=== PATIENT | female | born 1995 | race Caucasian/White ===

== ENCOUNTER 2020-02-17 14:37 | Outpatient (REF) | payer OTHER, SELFPAY ==
--- NOTE | 2020-02-17 14:50 | XR_ITS ---
EXAMINATION: XR SHOULDER, RIGHT CLINICAL INFORMATION: Pain COMPARISON: None TECHNIQUE: AP external rotation, Grashey, scapular Y, and axillary views of the right shoulder. FINDINGS: No fracture. Glenohumeral and acromioclavicular alignment is anatomic with normal joint space. No abnormal soft tissue calcifications. IMPRESSION: No significant osseous abnormality.
== END 2020-02-17 14:38 | disposition home or self-care (01) ==
LOC: HO.XRAY 14:37
PROVIDERS: PCP Family Medicine; Visit Provider Family Medicine
DX: M25.511 Pain in right shoulder (principal)
CPT/HCPCS: 73030

== ENCOUNTER 2020-03-03 14:06 | Emergency (ER) | payer OTHER, SELFPAY ==
[2020-03-03 14:20] VITALS: BP 114/71; PULSE 91; RESP 16; TEMP 37; O2SAT 98; BMI 26.6
[2020-03-03 15:30] VITALS: BP 112/65; PULSE 74; RESP 16; O2SAT 99
[2020-03-03 16:43] VITALS: BP 136/84; PULSE 85; RESP 18; O2SAT 97
[2020-03-03 16:51] LABS: MANUAL DIFF FLAG NO
[2020-03-03 16:52] LABS: Basophils Percent Auto 0.2 % (0-2); Eosinophils Absolute Auto 0.2 X10*3/uL (0.0-0.4); Eosinophils Percent Auto 1.3 % (0-4); Hematocrit 36.7 % (37-47); Hemoglobin 11.3 g/dl (12.0-16.0); Imm Gran Abs Auto 0.05 X10*3/uL (0.00-0.03); Imm Gran Pct Auto 0.3 % (0.0-0.4); Lymphocytes Percent Auto 6.4 % (20-40); Mean Corpuscular HGB Conc 30.8 g/dl (31.0-35.0); Mean Corpuscular Hemoglobin 24.9 pg (27.0-33.0); Mean Corpuscular Volume 80.8 fL (80-98); Mean Platelet Volume 9.7 fL (9.4-12.3); Monocytes Absolute Auto 0.6 X10*3/uL (0.1-1.2); Monocytes Percent Auto 3.7 % (2-11); Neutrophils Absolute Auto 13.7 X10*3/uL (2.0-8.3); Neutrophils Percent Auto 88.1 % (45-73); Platelet Count 294 X10*3/uL (160-400); Red Blood Count 4.54 X10*6/uL (4.20-5.50); Red Cell Distribution Width 13.3 % (11.0-16.0); White Blood Count 15.6 X10*3/uL (4.8-10.8)
--- NOTE | 2020-03-03 17:14 | CT_ITS ---
EXAMINATION: CT ABDOMEN AND PELVIS WITHOUT CONTRAST CLINICAL INFORMATION: Left-sided abdominal pain with history of Crohn's disease. COMPARISON: 08/11/2019 TECHNIQUE: Multidetector volumetric imaging was performed from the superior aspect of the liver through the pubic symphysis. Sagittal and coronal reformatted images were obtained on the technologist's workstation. This CT examination was performed using dose optimization techniques as appropriate, variously including the following: *Automated exposure control. *Adjustment of mA and/or kV according to patient size (this includes techniques or standardized protocols for targeted exams where dose is matched to indication/reason for exam; i.e. extremities or head). *Use of iterative reconstruction technique. DLP: 488 mGy-cm FINDINGS: LUNG BASES: The visualized lung bases are unremarkable. Again seen is a peripheral bleb in the left lower lobe. LIVER, GALLBLADDER, AND BILIARY TREE: The liver is normal in size, shape, and attenuation. No focal hepatic lesion or biliary ductal dilatation is present. Status post cholecystectomy with clips in the gallbladder fossa. PANCREAS: Unremarkable. SPLEEN: Unremarkable. ADRENAL GLANDS: Unremarkable. KIDNEYS AND URETERS: The kidneys are normal in size, shape, and attenuation. No hydronephrosis, hydroureter, or calculi seen. No perinephric stranding. BLADDER: Unremarkable. GASTROINTESTINAL TRACT: Again seen are postop suture lines in the bowel, presumably status post right hemicolectomy and small bowel resection. There is no evidence of obstruction. The small and large bowel are otherwise unremarkable. ABDOMINAL WALL: No significant hernia is appreciated. LYMPH NODES: No retroperitoneal lymphadenopathy. Multiple small lymph nodes are noted in the root of the mesentery. VASCULAR: Unremarkable. PELVIC VISCERA: An IUD is present in the anteverted uterus. An abnormal adnexal mass or free intraperitoneal fluid is not seen. A new 1.9 cm benign-appearing cyst is noted in the left ovary. OSSEOUS STRUCTURES: Unremarkable. CT/CT abdomen pelvis wo con IMPRESSION: 1. A cause for the patient's left-sided abdominal pain has not been found. 2. Status post cholecystectomy. 3. Status post bowel surgery with no evidence of obstruction. 4. IUD remains in good position in the uterus. 5. A new 1.9 cm benign-appearing left ovarian cyst.
--- NOTE | 2020-03-03 17:15 | ED.ABDPAIN ---
HPI - Abdominal Pain General Chief Complaint: Nausea/Vomiting/Diarrhea Stated Complaint: Nausea, vomiting, diarrhea Time Seen by Provider: 03/03/20 17:05 Source: patient Mode of arrival: ambulatory Limitations: no limitations History of Present Illness HPI narrative: patient with history of Crohn's disease on Stelara last flare-up was in 05/26 and since she is on Stelara for last 18 months, patient has been doing very well. For last 3 days patient noticed diarrhea with blood nausea and vomiting and pain in the left side is getting worse now. Patient denies any fever no abdominal distention Related Data Previous Rx's Medication Instructions Recorded dicyclomine 20 mg PO TID #20 tab 03/03/20 ondansetron 4 mg PO Q6H PRN #20 tab 03/03/20 Allergies Allergy/AdvReac Type Severity Reaction Status Date / Time amoxicillin [AMOXICILLIN] Allergy Intermediate CHRON'S Verified 03/03/20 17:43 FLARE UP, vomiting azathioprine [AZATHIOPRINE] Allergy Unknown PANCREATITI Verified 03/03/20 17:43 S Penicillins [PENICILLINS] AdvReac Unknown NAUSEA, Verified 03/03/20 17:43 CHRONS FLARE UP Review of Systems Review of Systems REVIEW OF SYSTEMS: Pertinent positives and negatives are stated above in the history. GEN: no fevers, chills, fatigue HEENT: no nasal congestion, sore throat, ear pain NEURO: no headache, dizziness, focal weakness PULM: no cough, shortness of breath CV: no chest pain, palpitations, LE edema ABD: per HPI : no dysuria, urgency, frequency SKIN: no rash ROS otherwise negative x 10 Physical Exam Vital Signs: Vital Signs: Vital Signs Temp Pulse Resp BP Pulse Ox 03/03/20 21:12 98.1 F 71 18 112/78 98 03/03/20 19:01 98.6 F 71 18 99/64 97 03/03/20 16:43 85 18 136/84 97 03/03/20 15:30 74 16 112/65 99 03/03/20 14:20 98.6 F 91 16 114/71 98 Body Mass Index 26.6 VITAL SIGNS: Reviewed. GENERAL: Well developed, well nourished, in mild distress. HEAD: Normocephalic/atraumatic, Posterior oropharynx was without edema, erythema or exudate. EYES: PERRLA, EOMI intact without pain, no nystagmus/pallor/icterus noted EARS: Ext canals without abnormality, TMs non-bulging and non-erythematous NOSE: Nares patent bilateral OROPHARYNX: no oral lesions noted, posterior pharynx clear and non-erythematous without noted tonsillar enlargement/erythema/exudates NECK: Supple, no adenopathy LUNGS: Normal breath sounds. No adventitious sounds or accessory muscle use CARDIOVASCULAR: Regular rate and rhythm without noted murmurs, no JVD or lower extremity edema. ABDOMEN: Soft, mild tenderness left upper quadrant, non-distended with normal bowel sounds. No rigidity. No guarding. No palpable masses or hernias noted MUSCULOSKELETAL: No tenderness, deformities, or effusions noted on gross inspection. EXTREMITIES: No cyanosis, clubbing or edema. SKIN: Inspection of the skin reveals no rashes, ulcerations, jaundice, pallor, or petechiae NEUROLOGIC: Alert and oriented x 3. Strength and sensation to light touch were grossly intact x 4. Course Course Course Narrative: patient with diffuse abdominal pain with [facility] is essentially stable with CT scan without any acute findings normal sed rate and CRP unlikely Crohn's disease flare up. Patient feeling much better after symptomatic treatment and IV fluids will discharge her home with likely diagnosis of gastroenteritis advised to follow with product manager e commerce MDM - Abdominal Pain Differential Diagnosis Differential diagnosis: Likely gastroenteritis, gastritis, pancreatitis and small bowel obstruction Differential diagnosis narrative:: flare-up of Crohn disease, adhesions, partial bowel obstruction Lab Data Result diagrams: 03/03/20 16:42 03/03/20 16:42 Labs: Lab Results 03/03/20 03/03/20 03/03/20 Range/Units 16:42 16:42 16:42 WBC 15.6 H (4.8-10.8) X10*3/uL RBC 4.54 (4.20-5.50) X10*6/uL Hgb 11.3 L (12.0-16.0) g/dl Hct 36.7 L (37-47) % MCV 80.8 (80-98) fL MCH 24.9 L (27.0-33.0) pg MCHC 30.8 L (31.0-35.0) g/dl RDW 13.3 (11.0-16.0) % Plt Count 294 (160-400) X10*3/uL MPV 9.7 (9.4-12.3) fL Immature Gran % (Auto) 0.3 (0.0-0.4) % Neut % (Auto) 88.1 H (45-73) % Lymph % (Auto) 6.4 L (20-40) % [place] % (Auto) 3.7 (2-11) % Eos % (Auto) 1.3 (0-4) % Baso % (Auto) 0.2 (0-2) % Lymph # (Auto) 1.0 L (1.2-4.9) X10*3/uL [place] # (Auto) 0.6 (0.1-1.2) X10*3/uL Eos # (Auto) 0.2 (0.0-0.4) X10*3/uL Baso # (Auto) 0.0 (0.0-0.2) X10*3/uL Abs Immat Gran (auto) 0.05 H (0.00-0.03) X10*3/uL Absolute Neuts (auto) 13.7 H (2.0-8.3) X10*3/uL Absolute Nucleated RBC 0.000 (0.0-0.012) X10*3/uL Nucleated RBC % (auto) 0.0 (0.0-0.2) /100WBC ESR 2 (0-20) MM/HR Sodium 136 (135-145) mmol/L Potassium 4.3 (3.3-5.1) mmol/l Chloride 104 (96-108) mmol/L Carbon Dioxide 23 (22-29) mmol/L Anion Gap 13 (12-20) BUN 13 (9-16) mg/dL Creatinine 0.75 (0.5-1.4) mg/dL Estim Creat Clear Calc 109.3 Estimated GFR > 60 Random Glucose 92 (60-115) mg/dL Lactic Acid (0.5-2.0) mmol/L Calcium 8.6 (8.4-10.2) mg/dL Total Bilirubin 0.4 (0.0-1.0) mg/dL Direct Bilirubin 0.2 (0.0-0.5) mg/dL AST 15 (5-31) U/L ALT 9 (0-31) U/L Alkaline Phosphatase 55 (39-117) U/L C-Reactive Protein 0.05 (< or = 0.50) mg/dL Total Protein 6.9 (6.5-8.0) g/dL Albumin 4.3 (3.5-5.0) g/dL Lipase 20 (8-78) U/L Beta HCG, Quant < 2 mIU/mL Urine Color Urine Appearance Urine pH (5.0-8.0) Ur Specific [place] (1.005-1.025) Urine Protein (NEG-TRACE) MG/DL Urine Glucose (UA) (NEG) MG/DL Urine Ketones (NEG) MG/DL Urine Blood (NEG) Urine Nitrite (NEG) Ur Leukocyte Esterase (NEG) Urine RBC (0) /HPF Urine WBC (0-4) /HPF Ur Squamous Epith Cells /LPF Urine Bacteria /LPF 03/03/20 03/03/20 Range/Units 18:22 19:30 WBC (4.8-10.8) X10*3/uL RBC (4.20-5.50) X10*6/uL Hgb (12.0-16.0) g/dl Hct (37-47) % MCV (80-98) fL MCH (27.0-33.0) pg MCHC (31.0-35.0) g/dl RDW (11.0-16.0) % Plt Count (160-400) X10*3/uL MPV (9.4-12.3) fL Immature Gran % (Auto) (0.0-0.4) % Neut % (Auto) (45-73) % Lymph % (Auto) (20-40) % [place] % (Auto) (2-11) % Eos % (Auto) (0-4) % Baso % (Auto) (0-2) % Lymph # (Auto) (1.2-4.9) X10*3/uL [place] # (Auto) (0.1-1.2) X10*3/uL Eos # (Auto) (0.0-0.4) X10*3/uL Baso # (Auto) (0.0-0.2) X10*3/uL Abs Immat Gran (auto) (0.00-0.03) X10*3/uL Absolute Neuts (auto) (2.0-8.3) X10*3/uL Absolute Nucleated RBC (0.0-0.012) X10*3/uL Nucleated RBC % (auto) (0.0-0.2) /100WBC ESR (0-20) MM/HR Sodium (135-145) mmol/L Potassium (3.3-5.1) mmol/l Chloride (96-108) mmol/L Carbon Dioxide (22-29) mmol/L Anion Gap (12-20) BUN (9-16) mg/dL Creatinine (0.5-1.4) mg/dL Estim Creat Clear Calc Estimated GFR Random Glucose (60-115) mg/dL Lactic Acid 0.7 (0.5-2.0) mmol/L Calcium (8.4-10.2) mg/dL Total Bilirubin (0.0-1.0) mg/dL Direct Bilirubin (0.0-0.5) mg/dL AST (5-31) U/L ALT (0-31) U/L Alkaline Phosphatase (39-117) U/L C-Reactive Protein (< or = 0.50) mg/dL Total Protein (6.5-8.0) g/dL Albumin (3.5-5.0) g/dL Lipase (8-78) U/L Beta HCG, Quant mIU/mL Urine Color YELLOW Urine Appearance CLEAR Urine pH 5.5 (5.0-8.0) Ur Specific [place] 1.015 (1.005-1.025) Urine Protein NEG (NEG-TRACE) MG/DL Urine Glucose (UA) NEG (NEG) MG/DL Urine Ketones 15 (NEG) MG/DL Urine Blood 1+ H (NEG) Urine Nitrite NEG (NEG) Ur Leukocyte Esterase NEG (NEG) Urine RBC 0-2 (0) /HPF Urine WBC 0 (0-4) /HPF Ur Squamous Epith Cells TRACE /LPF Urine Bacteria TRACE /LPF Discharge Plan Discharge Clinical Impression: Gastroenteritis Patient Disposition: Home, Self-Care Instructions: Gastroenteritis (ED) Additional Instructions: drink plenty of fluids and continue medications follow-up with primary care doctor / product manager e commerce if not better Prescriptions: New ondansetron 4 mg tablet,disintegrating 4 mg PO Q6H PRN (Reason: nausea and vomiting) Qty: 20 RF: 0 dicyclomine 20 mg tablet 20 mg PO TID Qty: 20 RF: 0 Interventions: ED Discharge Assessment Last Done: 03/03/20 21:50 Discharge Date/Time: 03/03/20 21:50 [facility] Past Medical History Medical History Acute Crohn's disease with intestinal obstruction Bipolar 1 disorder, depressed Eating disorder Pelvic floor dysfunction Social History Social History Alcohol intake: never Smoking Status: Never smoker Use of substances other than those prescribed or required for medical reasons: Yes Substance Use Type: Marijuana Substance Use Frequency: Daily Last Used Substance: Hours (ago) Any prior treatment program specific to substance use: No Advance Directives: No Advance Directives Information Provided: Yes
[2020-03-03 17:34] LABS: Alanine Aminotransferase 9 U/L (0-31); Albumin Level 4.3 g/dL (3.5-5.0); Alkaline Phosphatase 55 U/L (39-117); Anion Gap 13 (12-20); Aspartate Amino Transferase 15 U/L (5-31); Bilirubin Direct 0.2 mg/dL (0.0-0.5); Bilirubin Total 0.4 mg/dL (0.0-1.0); Blood Urea Nitrogen 13 mg/dL (9-16); Calcium 8.6 mg/dL (8.4-10.2); Carbon Dioxide 23 mmol/L (22-29); Chloride 104 mmol/L (96-108); Creatinine Clr Calc Pharmacy 109.3; Estimated Glomerular Filt Rate > 60; Glucose Random 92 mg/dL (60-115); Lipase 20 U/L (8-78); Potassium 4.3 mmol/l (3.3-5.1); Sodium 136 mmol/L (135-145); Total Protein 6.9 g/dL (6.5-8.0)
[2020-03-03] MEDS: ondansetron HCL 4 MG/2 ML VIAL IVPUSH ×2 (17:43→21:43)
[2020-03-03] MEDS: 0.9 % Sodium Chloride 1,000 ML 999 ML IVCONT (17:43)
[2020-03-03] MEDS: Morphine Sulfate 4 MG/ML CARTRIDGE IVPUSH (17:43)
[2020-03-03 18:29] LABS: Color Urine YELLOW; Glucose Urine UA NEG (NEG); Leukocyte Esterase Urine NEG (NEG); Nitrite Urine NEG (NEG); PH 5.5 (5.0-8.0); Specific Gravity - Urine 1.015 (1.005-1.025); Urine Blood 1+ (NEG); Urine Ketones 15 MG/DL (NEG); Urine Protein NEG (NEG-TRACE)
[2020-03-03 18:30] LABS: Appearance Urine CLEAR
[2020-03-03 18:36] LABS: Bacteria Urine TRACE /LPF; RBC Urine 0-2 /HPF (0); Squamous Epithelial Cell Urine TRACE /LPF; WBC Urine 0 /HPF (0-4)
[2020-03-03 19:01] VITALS: BP 99/64; PULSE 71; RESP 18; TEMP 37; O2SAT 97
[2020-03-03 19:24] LABS: C Reactive Protein 0.05 mg/dL (< or = 0.50)
[2020-03-03 19:33] LABS: HCG Quantitative < 2 mIU/mL
[2020-03-03 19:34] LABS: Erythrocyte Sedimentation Rate 2 MM/HR (0-20)
[2020-03-03 20:19] LABS: Lactic Acid 0.7 mmol/L (0.5-2.0)
[2020-03-03 21:12] VITALS: BP 112/78; PULSE 71; RESP 18; TEMP 36.7; O2SAT 98
== END 2020-03-03 21:50 | disposition home or self-care (01) ==
PROVIDERS: Emergency Provider Internal Medicine; PCP Family Medicine
DX: K52.9 Noninfective gastroenteritis and colitis, unspecified (principal); F12.90 Cannabis use, unspecified, uncomplicated; Z79.899 Other long term (current) drug therapy
CPT/HCPCS: 36415; 74176; 80048; 80076; 81001; 83605; 83690; 84702; 85025; 85652; 86140; 96361; 96374; 96375; 96376; 99284; J2270; J2405

== ENCOUNTER 2020-03-08 09:27 | Outpatient (REF) | payer OTHER, SELFPAY ==
[2020-03-09 09:08] LABS: CT PCR NOT DETECTED (Not Detect.); NG PCR NOT DETECTED (Not Detect.)
[2020-03-09 10:28] LABS: BV Int Neg Control Negative (Negative)
[2020-03-09 10:29] LABS: BV Int Pos Control Positive (Positive)
== END 2020-03-08 09:28 | disposition home or self-care (01) ==
LOC: HO.LAB 09:27
PROVIDERS: PCP Family Medicine Geriatric Medicine; Referring Provider Family Medicine Geriatric Medicine; Visit Provider Obstetrics & Gynecology
DX: Z01.419 Encounter for gynecological examination (general) (routine) without abnormal findings (principal); N92.1 Excessive and frequent menstruation with irregular cycle; Z79.899 Other long term (current) drug therapy
CPT/HCPCS: 87480; 87491; 87510; 87591; 87660; 88142

== ENCOUNTER 2020-03-10 14:22 | Outpatient (REF) | payer OTHER, SELFPAY ==
--- NOTE | 2020-03-10 14:27 | US_ITS ---
EXAMINATION: ULTRASOUND PELVIC, COMPLETE CLINICAL INFORMATION: Excessive and frequent menses COMPARISON: None. TECHNIQUE: Transabdominal and transvaginal imaging was performed. Transvaginal imaging was performed for further evaluation of the endometrium and adnexa. FINDINGS: The uterus is of normal size and echogenicity measuring 8.4 x 4.1 x 5.3 cm. A regular homogeneous endometrium is identified measuring 1.2 cm. There is an intrauterine device that appears correctly positioned within the endometrium. Both ovaries are of normal size and echogenicity. The right ovary measures 2.7 x 2.4 x 2.4 cm for a volume of 8.1 mL. The left ovary measures 3.9 x 2.8 x 2.5 cm for a volume of 14.3 mL. There is a 1.7 cm corpus luteum cyst within the left ovary. There is no pelvic free fluid. US/US transvaginal IMPRESSION: Unremarkable pelvic ultrasound. Intrauterine device in correct position.
--- NOTE | 2020-03-10 14:27 | US_ITS ---
EXAMINATION: ULTRASOUND PELVIC, COMPLETE CLINICAL INFORMATION: Excessive and frequent menses COMPARISON: None. TECHNIQUE: Transabdominal and transvaginal imaging was performed. Transvaginal imaging was performed for further evaluation of the endometrium and adnexa. FINDINGS: The uterus is of normal size and echogenicity measuring 8.4 x 4.1 x 5.3 cm. A regular homogeneous endometrium is identified measuring 1.2 cm. There is an intrauterine device that appears correctly positioned within the endometrium. Both ovaries are of normal size and echogenicity. The right ovary measures 2.7 x 2.4 x 2.4 cm for a volume of 8.1 mL. The left ovary measures 3.9 x 2.8 x 2.5 cm for a volume of 14.3 mL. There is a 1.7 cm corpus luteum cyst within the left ovary. There is no pelvic free fluid. US/US pelvic complete IMPRESSION: Unremarkable pelvic ultrasound. Intrauterine device in correct position.
== END 2020-03-10 14:23 | disposition home or self-care (01) ==
LOC: HO.US 14:22
PROVIDERS: Visit Provider Obstetrics & Gynecology
DX: N92.1 Excessive and frequent menstruation with irregular cycle (principal)
CPT/HCPCS: 76830; 76856

== ENCOUNTER → 2020-05-10 15:38 | Outpatient (BNVA) | payer OTHER, SELFPAY | PROVIDERS: PCP Family Medicine; Visit Provider Obstetrics & Gynecology | DX: Z76.89 Persons encountering health services in other specified circumstances (principal) | CPT/HCPCS: 99212 ==

== ENCOUNTER 2020-07-06 10:55 | Outpatient (REF) | payer OTHER, SELFPAY ==
--- NOTE | ~2020-07-06 | MM_ITS ---
EXAMINATION: BONE DENSITOMETRY CLINICAL INDICATION: Crohn's disease, unspecified. Long-term, current, use systemic steroid. Age 24. COMPARISON: None (current study represents initial baseline exam). TECHNIQUE: Using a [employer] DXA System (software version: 13.1) manufactured by [employer], dual-energy x-ray absorptiometry was performed of the lumbar spine and left hip. The images are of good technical quality. Based on ISCD (International Society for Clinical Densitometry) standards of reporting, Z-scores instead of T-scores are reported in this premenopausal woman. Summary results are attached. FINDINGS: AP SPINE L1-L4: BMD 1.245 g/cm2, T-score 0.5, Z-score 0.2, Z-score within expected range for age. LEFT FEMUR, NECK: BMD 0.954 g/cm2, T-score -0.6, Z-score -0.8, Z-score within expected range for age. LEFT FEMUR, TOTAL: BMD 1.027 g/cm2, T-score 0.2, Z-score -0.1, Z-score within expected range for age. IDENTIFIED RISK FACTORS: Low calcium intake, secondary osteoporosis, anticonvulsants, glucocorticoids (chronic). HISTORY OF FRACTURE: None listed. MEDICATIONS: Calcium supplements or multivitamin, vitamin D. MM/XR DEXA axial skeleton IMPRESSION: 1. DIAGNOSIS: Based on the lowest Z-score value of -0.8 in the femoral neck, the patient's bone density is within the expected range for age. 2. 10-YEAR FRACTURE RISK PREDICTION, FRAX: Not performed in this patient outside the age range of 40-90 years. 3. Treatment Recommendations: NOF guidelines recommend consideration for treatment in postmenopausal women and men age 50 and older presenting with the following: -A hip or vertebral (clinical or morphometric) fracture. -T-score less than or equal to -2.5 at the femoral neck or spine after appropriate evaluation to exclude secondary causes. -Low bone mass at the hip or spine and a 10-year fracture probability by FRAX of greater than or equal to 3% for hip fracture or greater than or equal to 20% for major osteoporotic fracture based on the [place] adapted WHO algorithm. 4. Other Recommendations: All treatment decisions require clinical judgment and consideration of individual patient factors, including patient preferences, comorbidities, previous drug use, risk factors not captured in the FRAX model (e.g. frailty, falls, vitamin D deficiency, increased bone turnover, interval significant decline in bone density) and possible under or overestimation of fracture risk by FRAX. FUTURE SCAN RECOMMENDATION: People with diagnosed cases of osteoporosis or at high risk for fracture should have regular bone mineral density tests. For patients eligible for Medicare, routine testing is allowed once every 2 years. The testing frequency can be increased to one year for patients who have rapidly progressing disease, those who are receiving or discontinuing medical therapy to restore bone mass, or have additional risk factors.
== END 2020-07-06 10:56 | disposition home or self-care (01) ==
LOC: HO.MAMMO 10:55
PROVIDERS: PCP Family Medicine; Visit Provider Family Medicine
DX: M81.8 Other osteoporosis without current pathological fracture (principal); K50.919 Crohn's disease, unspecified, with unspecified complications; E58 Dietary calcium deficiency; Z79.52 Long term (current) use of systemic steroids; Z79.899 Other long term (current) drug therapy
CPT/HCPCS: 77080

== ENCOUNTER 2020-07-12 19:01 | Emergency (ER) | payer OTHER, SELFPAY ==
[2020-07-12 20:54] VITALS: BP 115/62; PULSE 79; RESP 18; TEMP 37; O2SAT 100
[2020-07-12 21:42] LABS: Basophils Absolute Auto 0.1 X10*3/uL (0.0-0.2); Basophils Percent Auto 0.4 % (0-2); Eosinophils Percent Auto 0.1 % (0-4); Hemoglobin 10.5 g/dl (12.0-16.0); Imm Gran Abs Auto 0.04 X10*3/uL (0.00-0.03); Imm Gran Pct Auto 0.3 % (0.0-0.4); Lymphocytes Absolute Auto 0.8 X10*3/uL (1.2-4.9); Lymphocytes Percent Auto 6.1 % (20-40); MANUAL DIFF FLAG SCAN; Mean Corpuscular Hemoglobin 22.4 pg (27.0-33.0); Mean Corpuscular Volume 74.6 fL (80-98); Mean Platelet Volume 9.5 fL (9.4-12.3); Monocytes Absolute Auto 0.3 X10*3/uL (0.1-1.2); Monocytes Percent Auto 2.3 % (2-11); Neutrophils Percent Auto 90.8 % (45-73); Platelet Count 396 X10*3/uL (160-400); Red Blood Count 4.69 X10*6/uL (4.20-5.50); Red Cell Distribution Width 13.5 % (11.0-16.0); SCAN SMEAR FLAG 1; White Blood Count 13.2 X10*3/uL (4.8-10.8)
[2020-07-12 22:03] LABS: SLIDE REVIEW VERIFIED
[2020-07-12 22:21] LABS: Albumin Level 4.5 g/dL (3.5-5.0); Alkaline Phosphatase 60 U/L (39-117); Aspartate Amino Transferase 16 U/L (5-31); Bilirubin Direct 0.3 mg/dL (0.0-0.5); Creatinine Clr Calc Pharmacy 115.9; Estimated Glomerular Filt Rate > 60; Sodium 137 mmol/L (135-145); Total Protein 7.6 g/dL (6.5-8.0)
[2020-07-12 23:13] LABS: Alanine Aminotransferase 12 U/L (0-31); Anion Gap 16 (12-20); Bilirubin Total 0.5 mg/dL (0.0-1.0); Blood Urea Nitrogen 13 mg/dL (9-16); Calcium 9.8 mg/dL (8.4-10.2); Carbon Dioxide 21 mmol/L (22-29); Chloride 105 mmol/L (96-108); Glucose Random 97 mg/dL (60-115); Lipase 16 U/L (8-78); Potassium 4.6 mmol/L (3.3-5.1)
--- NOTE | 2020-07-12 23:59 | ED.ABDPAIN ---
HPI - Abdominal Pain General Chief Complaint: Abdominal Pain Stated Complaint: abd pain Time Seen by Provider: 07/12/20 23:52 Source: patient and old records reviewed Mode of arrival: ambulatory Limitations: no limitations History of Present Illness HPI narrative: 24 yo female with Crohn's on Stelara noted LLQ pain today no bloody stools but n/v - feels like a flare, had colonoscopy recently but only told she had duodenum inflammation, took zofran in [place] feels a little better MD elicited complaint: abdominal pain Pertinent past history: other (Crohns) Onset (ago): hour(s) (several ) Pain Consistency: constant Location: LLQ Severity: similar to previous episodes Quality: stabbing Radiation: none Migration to: no migration Exacerbating factors: vomiting and movement Relieving factors: nothing Context: history of similar episodes Associated symptoms: nausea and vomiting Related Data Home Medications Medication Instructions Recorded Confirmed aripiprazole 5 mg tablet 5 mg PO DAILY 03/08/20 05/04/20 omeprazole 20 mg capsule,delayed 20 mg PO DAILY 03/08/20 05/04/20 release oxcarbazepine 600 mg tablet 600 mg PO BID 03/08/20 05/04/20 propranolol 10 mg tablet 10 mg PO BID 03/08/20 05/04/20 trazodone 150 mg tablet 150 mg PO BEDTIME PRN 03/08/20 05/04/20 valacyclovir 1 gram tablet 1,000 mg PO DAILY 03/08/20 05/04/20 ondansetron HCl 4 mg tablet 4 mg PO Q6H PRN 05/10/20 promethazine 12.5 mg tablet 12.5 mg PO Q6H PRN 05/10/20 ustekinumab 90 mg/mL subcutaneous mg SUBCUT 05/10/20 syringe Previous Rx's Medication Instructions Recorded dicyclomine 20 mg PO TID #20 tab 03/03/20 ondansetron 4 mg PO Q6H PRN #20 tab 03/03/20 hydrocodone-acetaminophen 1 tab PO Q6H PRN #12 tab 07/13/20 metronidazole [Flagyl] 500 mg PO BID 7 Days #14 tab 07/13/20 ondansetron 4 mg PO Q8H PRN #20 tab 07/13/20 Allergies Allergy/AdvReac Type Severity Reaction Status Date / Time amoxicillin [AMOXICILLIN] Allergy Intermediate CHRON'S Verified 07/12/20 20:53 FLARE UP, vomiting azathioprine [AZATHIOPRINE] Allergy Unknown PANCREATITI Verified 07/12/20 20:53 S Penicillins [PENICILLINS] AdvReac Unknown NAUSEA, Verified 07/12/20 20:53 CHRONS FLARE UP Review of Systems Review of Systems Constitutional : No Weight loss, No Fever, No Chills ENT/Mouth : No sore throat, No Rhinorrhea Eyes: No Swelling, No Redness Cardiovascular : No Chest Pain, No SOB, NoEdema Respiratory : No Cough, No Sputum, No Wheezing Gastrointestinal : Positive Nausea, Positive Vomiting, no Diarrhea, positive abdominal Pain, No Hematochezia, No Melena Genitourinary : No Dysuria, No Urinary Frequency, No Hematuria, No Urgency Musculoskeletal : No joint pain, No Myalgias, No Joint Swelling Skin : No Skin Lesions, No rash Neuro : No Weakness, No Numbness, No Dizziness, No Headache Psych : No Anxiety/Panic, No Depression Heme/Lymph: No Bruising, No Lymphadenopathy Endocrine : No Polyuria, No Polydipsia All other systems reviewed and are negative. Physical Exam Vital Signs: Vital Signs: Last Vital Signs Temp 98.6 F 07/12/20 20:54 Pulse 79 07/12/20 20:54 Resp 18 07/13/20 00:48 BP 115/62 07/12/20 20:54 Pulse Ox 100 07/12/20 20:54 Body Mass Index 30.0 Appearance: Alert. Oriented X3. No acute distress. Eyes: Pupils equal, round and reactive to light. ENT: Pharynx normal. Neck: Normal inspection. Neck supple. CVS: Normal heart rate and rhythm. Pulses normal. Respiratory: No respiratory distress. Breath sounds normal. Abdomen: Soft and moderate ttp in LLQ no rebound Skin: Skin warm and dry. Normal skin color. Normal skin turgor. Extremities: No lower extremity edema. No calf ttp Neuro: Oriented X 3. No motor deficit. No sensory deficit. Course Course Course Narrative: infl markers negative, no diarrhea feels much better, stable for DC, will avoid imaging and start on flagyl can call her GI doctor today MDM - Abdominal Pain MDM Narrative Medical decision making narrative: 24 yo female with hx of Crohn's and frequent flares is on Stelara at this time c/o n/v and LLQ pain denies bloody stools, will start with labs and infl markers - IVF, IV reglan and IV morphine - CT scan possible depending on clinical improvement as well as labs, dispo per results and findings. Lab Data Result diagrams: 07/12/20 21:32 07/12/20 21:32 Labs: Lab Results 07/12/20 07/12/20 07/13/20 Range/Units 21:32 21:32 00:24 WBC 13.2 H (4.8-10.8) X10*3/uL RBC 4.69 (4.20-5.50) X10*6/uL Hgb 10.5 L (12.0-16.0) g/dl Hct 35.0 L (37-47) % MCV 74.6 L (80-98) fL MCH 22.4 L (27.0-33.0) pg MCHC 30.0 L (31.0-35.0) g/dl RDW 13.5 (11.0-16.0) % Plt Count 396 (160-400) X10*3/uL MPV 9.5 (9.4-12.3) fL Immature Gran % (Auto) 0.3 (0.0-0.4) % Neut % (Auto) 90.8 H (45-73) % Lymph % (Auto) 6.1 L (20-40) % [place] % (Auto) 2.3 (2-11) % Eos % (Auto) 0.1 (0-4) % Baso % (Auto) 0.4 (0-2) % Lymph # (Auto) 0.8 L (1.2-4.9) X10*3/uL [place] # (Auto) 0.3 (0.1-1.2) X10*3/uL Eos # (Auto) 0.0 (0.0-0.4) X10*3/uL Baso # (Auto) 0.1 (0.0-0.2) X10*3/uL Abs Immat Gran (auto) 0.04 H (0.00-0.03) X10*3/uL Absolute Neuts (auto) 12.0 H (2.0-8.3) X10*3/uL Absolute Nucleated RBC 0.000 (0.0-0.012) X10*3/uL Nucleated RBC % (auto) 0.0 (0.0-0.2) /100WBC Smear Tech's Comments VERIFIED ESR 4 (0-20) MM/HR Sodium 137 (135-145) mmol/L Potassium 4.6 (3.3-5.1) mmol/L Chloride 105 (96-108) mmol/L Carbon Dioxide 21 L (22-29) mmol/L Anion Gap 16 (12-20) BUN 13 (9-16) mg/dL Creatinine 0.75 (0.5-1.4) mg/dL Estim Creat Clear Calc 115.9 Estimated GFR > 60 Random Glucose 97 (60-115) mg/dL Lactic Acid (0.5-2.0) mmol/L Calcium 9.8 D (8.4-10.2) mg/dL Total Bilirubin 0.5 (0.0-1.0) mg/dL Direct Bilirubin 0.3 (0.0-0.5) mg/dL AST 16 (5-31) U/L ALT 12 (0-31) U/L Alkaline Phosphatase 60 (39-117) U/L C-Reactive Protein (< or = 0.50) mg/dL Total Protein 7.6 (6.5-8.0) g/dL Albumin 4.5 (3.5-5.0) g/dL Lipase 16 (8-78) U/L Urine Color Urine Appearance Urine pH (5.0-8.0) Ur Specific [place] (1.005-1.025) Urine Protein (NEG-TRACE) MG/DL Urine Glucose (UA) (NEG) MG/DL Urine Ketones (NEG) MG/DL Urine Blood (NEG) Urine Nitrite (NEG) Ur Leukocyte Esterase (NEG) Urine Test (NEGATIVE) COVID-19 (DIO) (Negative) COVID-19 Clin Com 07/13/20 07/13/20 07/13/20 Range/Units 00:24 00:24 00:24 WBC (4.8-10.8) X10*3/uL RBC (4.20-5.50) X10*6/uL Hgb (12.0-16.0) g/dl Hct (37-47) % MCV (80-98) fL MCH (27.0-33.0) pg MCHC (31.0-35.0) g/dl RDW (11.0-16.0) % Plt Count (160-400) X10*3/uL MPV (9.4-12.3) fL Immature Gran % (Auto) (0.0-0.4) % Neut % (Auto) (45-73) % Lymph % (Auto) (20-40) % [place] % (Auto) (2-11) % Eos % (Auto) (0-4) % Baso % (Auto) (0-2) % Lymph # (Auto) (1.2-4.9) X10*3/uL [place] # (Auto) (0.1-1.2) X10*3/uL Eos # (Auto) (0.0-0.4) X10*3/uL Baso # (Auto) (0.0-0.2) X10*3/uL Abs Immat Gran (auto) (0.00-0.03) X10*3/uL Absolute Neuts (auto) (2.0-8.3) X10*3/uL Absolute Nucleated RBC (0.0-0.012) X10*3/uL Nucleated RBC % (auto) (0.0-0.2) /100WBC Smear Tech's Comments ESR (0-20) MM/HR Sodium (135-145) mmol/L Potassium (3.3-5.1) mmol/L Chloride (96-108) mmol/L Carbon Dioxide (22-29) mmol/L Anion Gap (12-20) BUN (9-16) mg/dL Creatinine (0.5-1.4) mg/dL Estim Creat Clear Calc Estimated GFR Random Glucose (60-115) mg/dL Lactic Acid 1.1 (0.5-2.0) mmol/L Calcium (8.4-10.2) mg/dL Total Bilirubin (0.0-1.0) mg/dL Direct Bilirubin (0.0-0.5) mg/dL AST (5-31) U/L ALT (0-31) U/L Alkaline Phosphatase (39-117) U/L C-Reactive Protein 0.05 (< or = 0.50) mg/dL Total Protein (6.5-8.0) g/dL Albumin (3.5-5.0) g/dL Lipase (8-78) U/L Urine Color Urine Appearance Urine pH (5.0-8.0) Ur Specific [place] (1.005-1.025) Urine Protein (NEG-TRACE) MG/DL Urine Glucose (UA) (NEG) MG/DL Urine Ketones (NEG) MG/DL Urine Blood (NEG) Urine Nitrite (NEG) Ur Leukocyte Esterase (NEG) Urine Test (NEGATIVE) COVID-19 (DIO) Negative (Negative) COVID-19 Clin Com See Note 07/13/20 07/13/20 Range/Units 00:24 00:24 WBC (4.8-10.8) X10*3/uL RBC (4.20-5.50) X10*6/uL Hgb (12.0-16.0) g/dl Hct (37-47) % MCV (80-98) fL MCH (27.0-33.0) pg MCHC (31.0-35.0) g/dl RDW (11.0-16.0) % Plt Count (160-400) X10*3/uL MPV (9.4-12.3) fL Immature Gran % (Auto) (0.0-0.4) % Neut % (Auto) (45-73) % Lymph % (Auto) (20-40) % [place] % (Auto) (2-11) % Eos % (Auto) (0-4) % Baso % (Auto) (0-2) % Lymph # (Auto) (1.2-4.9) X10*3/uL [place] # (Auto) (0.1-1.2) X10*3/uL Eos # (Auto) (0.0-0.4) X10*3/uL Baso # (Auto) (0.0-0.2) X10*3/uL Abs Immat Gran (auto) (0.00-0.03) X10*3/uL Absolute Neuts (auto) (2.0-8.3) X10*3/uL Absolute Nucleated RBC (0.0-0.012) X10*3/uL Nucleated RBC % (auto) (0.0-0.2) /100WBC Smear Tech's Comments ESR (0-20) MM/HR Sodium (135-145) mmol/L Potassium (3.3-5.1) mmol/L Chloride (96-108) mmol/L Carbon Dioxide (22-29) mmol/L Anion Gap (12-20) BUN (9-16) mg/dL Creatinine (0.5-1.4) mg/dL Estim Creat Clear Calc Estimated GFR Random Glucose (60-115) mg/dL Lactic Acid (0.5-2.0) mmol/L Calcium (8.4-10.2) mg/dL Total Bilirubin (0.0-1.0) mg/dL Direct Bilirubin (0.0-0.5) mg/dL AST (5-31) U/L ALT (0-31) U/L Alkaline Phosphatase (39-117) U/L C-Reactive Protein (< or = 0.50) mg/dL Total Protein (6.5-8.0) g/dL Albumin (3.5-5.0) g/dL Lipase (8-78) U/L Urine Color YELLOW Urine Appearance CLEAR Urine pH 6.0 (5.0-8.0) Ur Specific [place] >= 1.030 H (1.005-1.025) Urine Protein TRACE (NEG-TRACE) MG/DL Urine Glucose (UA) NEG (NEG) MG/DL Urine Ketones >=80 (NEG) MG/DL Urine Blood NEG (NEG) Urine Nitrite NEG (NEG) Ur Leukocyte Esterase NEG (NEG) Urine Test NEGATIVE (NEGATIVE) COVID-19 (DIO) (Negative) COVID-19 Clin Com Discharge Plan Discharge Clinical Impression: Abdominal pain Qualifiers: Abdominal location: left lower quadrant Qualified Code(s): R10.32 - Left lower quadrant pain Vomiting Qualifiers: Vomiting type: unspecified Vomiting Intractability: non-intractable Nausea presence: with nausea Qualified Code(s): R11.2 - Nausea with vomiting, unspecified Patient Disposition: Home, Self-Care Instructions: Acute Nausea and Vomiting (ED), Abdominal Pain (ED) Additional Instructions: return to ED for any worsening symptoms or concerns please call your GI doctor today Prescriptions: New hydrocodone-acetaminophen 5-325 mg tablet 1 tab PO Q6H PRN (Reason: pain) Qty: 12 RF: 0 ondansetron 4 mg tablet,disintegrating 4 mg PO Q8H PRN (Reason: nausea and vomiting) Qty: 20 RF: 0 metronidazole [Flagyl] 500 mg tablet 500 mg PO BID 7 Days Qty: 14 RF: 0 No Action ondansetron 4 mg tablet,disintegrating 4 mg PO Q6H PRN (Reason: nausea and vomiting) Qty: 20 RF: 0 dicyclomine 20 mg tablet 20 mg PO TID Qty: 20 RF: 0 aripiprazole [Abilify] 5 mg tablet 5 mg PO DAILY RF: 0 oxcarbazepine 600 mg tablet 600 mg PO BID RF: 0 trazodone 150 mg tablet 150 mg PO BEDTIME PRN (Reason: Insomnia) RF: 0 omeprazole 20 mg capsule,delayed release(DR/EC) 20 mg PO DAILY RF: 0 propranolol 10 mg tablet 10 mg PO BID RF: 0 valacyclovir 1 gram tablet 1,000 mg PO DAILY RF: 0 ondansetron HCl 4 mg tablet 4 mg PO Q6H PRN (Reason: nausea) RF: 0 promethazine 12.5 mg tablet 12.5 mg PO Q6H PRN (Reason: nausea) RF: 0 Stelara 90 mg/mL syringe subcut RF: 0 PMFSH Past Medical History Medical History Acute Crohn's disease with intestinal obstruction Bipolar 1 disorder, depressed Eating disorder Pelvic floor dysfunction Surgical History History of appendectomy History of bowel resection History of cholecystectomy Family History Family History Maternal Grandmother Brain cancer Paternal Grandmother Lung cancer Father Skin cancer Diabetes Heart disease Asthma Maternal Grandfather Diabetes Maternal Grandmother Diabetes Paternal Grandfather Diabetes Paternal Grandmother Diabetes Mother Heart disease Social History Social History Alcohol intake: never Smoking Status: Never smoker Substance Use Type: Marijuana Advance Directives: No Sexual orientation: Straight/Heterosexual Gender identity: female
[2020-07-13] MEDS: Metoclopramide HCl 10 MG/2 ML VIAL 5 MG IVPUSH (00:47)
[2020-07-13 00:48] VITALS: RESP 18
[2020-07-13] MEDS: diphenhydrAMINE HCL 50 MG/ML VIAL 25 MG IVPUSH (00:48)
[2020-07-13] MEDS: 0.9 % Sodium Chloride 1,000 ML 999 ML IVCONT ×2 (00:48→01:22)
[2020-07-13] MEDS: Morphine Sulfate 4 MG/ML CARTRIDGE IVPUSH (00:48)
[2020-07-13 00:52] LABS: Lactic Acid 1.1 mmol/L (0.5-2.0)
[2020-07-13 00:53] LABS: Glucose Urine UA NEG (NEG); Leukocyte Esterase Urine NEG (NEG); Nitrite Urine NEG (NEG); Specific Gravity - Urine >= 1.030 (1.005-1.025); Urine Blood NEG (NEG); Urine Ketones >=80 MG/DL (NEG); Urine Protein TRACE MG/DL (NEG-TRACE)
[2020-07-13 00:54] LABS: C Reactive Protein 0.05 mg/dL (< or = 0.50)
[2020-07-13 00:55] LABS: Appearance Urine CLEAR; Color Urine YELLOW
[2020-07-13 00:57] LABS: UPreg QC Valid YES; Urine Pregnancy NEGATIVE (NEGATIVE)
[2020-07-13 01:05] LABS: COVID-19 Test Negative (Negative); IDNOW Serial# 9DD0AD1C
[2020-07-13 01:13] LABS: Erythrocyte Sedimentation Rate 4 MM/HR (0-20)
[2020-07-13 03:07] VITALS: BP 111/65; PULSE 76; RESP 16; TEMP 36.6; O2SAT 99
== END 2020-07-13 03:55 | disposition home or self-care (01) ==
PROVIDERS: Emergency Provider Emergency Medicine; PCP Family Medicine
DX: R10.32 Left lower quadrant pain (principal); R11.2 Nausea with vomiting, unspecified; F12.90 Cannabis use, unspecified, uncomplicated; Z20.822 Contact with and (suspected) exposure to COVID-19; Z79.899 Other long term (current) drug therapy
CPT/HCPCS: 36415; 80048; 80076; 81003; 81025; 83605; 83690; 85025; 85652; 86140; 87040; 87635; 96365; 96366; 96375; 99283; 99284; J1200; J2270; J2765

== ENCOUNTER 2020-07-30 10:39 | Outpatient (REF) | payer OTHER, SELFPAY | END 2020-07-30 10:40 | disposition home or self-care (01) | LOC: HO.MDS 10:39 | PROVIDERS: Visit Provider Internal Medicine | DX: D50.9 Iron deficiency anemia, unspecified (principal) | CPT/HCPCS: 96365; J2916 ==

== ENCOUNTER 2020-08-05 11:49 | Outpatient (REF) | payer MEDICARE, MEDICAID, SELFPAY | END 2020-08-05 11:50 | disposition home or self-care (01) | LOC: HO.MDS 11:49 | PROVIDERS: PCP Family Medicine; Visit Provider Internal Medicine | DX: D50.9 Iron deficiency anemia, unspecified (principal) | CPT/HCPCS: 96365; J2916 ==

== ENCOUNTER → 2020-08-10 10:53 | Outpatient (BNVA) | payer MEDICARE, MEDICAID, SELFPAY | PROVIDERS: PCP Family Medicine; Visit Provider Obstetrics & Gynecology | DX: Z30.432 Encounter for removal of intrauterine contraceptive device (principal) | CPT/HCPCS: 58301 ==

== ENCOUNTER 2020-11-25 06:23 | Outpatient (REF) | payer MEDICARE, MEDICAID, SELFPAY ==
[2020-11-26 12:11] LABS: Lyme Abs Screen <0.90 index
== END 2020-11-25 06:24 | disposition home or self-care (01) ==
LOC: HO.HMGCLDS 06:23
PROVIDERS: PCP Family Medicine; Visit Provider Family Medicine
DX: T14.8XXA Other injury of unspecified body region, initial encounter (principal); W57.XXXA Bitten or stung by nonvenomous insect and other nonvenomous arthropods, initial encounter; R50.9 Fever, unspecified
CPT/HCPCS: 36415; 86617; 86618

== ENCOUNTER 2021-03-01 10:38 | Outpatient (REF) | payer MEDICARE, MEDICAID, SELFPAY ==
[2021-03-01 11:24] LABS: MANUAL DIFF FLAG NO
[2021-03-01 11:31] LABS: Basophils Percent Auto 0.5 % (0-2); Eosinophils Absolute Auto 0.1 X10*3/uL (0.0-0.4); Eosinophils Percent Auto 1.6 % (0-4); Hematocrit 41.3 % (37-47); Hemoglobin 13.3 g/dl (12.0-16.0); Imm Gran Abs Auto 0.02 X10*3/uL (0.00-0.03); Imm Gran Pct Auto 0.3 % (0.0-0.4); Lymphocytes Absolute Auto 1.6 X10*3/uL (1.2-4.9); Lymphocytes Percent Auto 25.6 % (20-40); Mean Corpuscular HGB Conc 32.2 g/dl (31.0-35.0); Mean Corpuscular Hemoglobin 26.8 pg (27.0-33.0); Mean Corpuscular Volume 83.1 fL (80-98); Mean Platelet Volume 10.5 fL (9.4-12.3); Monocytes Absolute Auto 0.4 X10*3/uL (0.1-1.2); Monocytes Percent Auto 6.8 % (2-11); Neutrophils Absolute Auto 4.1 X10*3/uL (2.0-8.3); Neutrophils Percent Auto 65.2 % (45-73); Platelet Count 330 X10*3/uL (160-400); Red Blood Count 4.97 X10*6/uL (4.20-5.50); Red Cell Distribution Width 13.6 % (11.0-16.0); White Blood Count 6.3 X10*3/uL (4.8-10.8)
[2021-03-01 12:13] LABS: Monotest Negative (Negative)
== END 2021-03-01 10:39 | disposition home or self-care (01) ==
LOC: HO.HMGCLDS 10:38
PROVIDERS: PCP Family Medicine; Visit Provider Family Medicine
DX: R50.9 Fever, unspecified (principal); R53.83 Other fatigue; Z20.828 Contact with and (suspected) exposure to other viral communicable diseases
CPT/HCPCS: 36415; 85025; 86308

== ENCOUNTER 2021-05-12 18:57 | Emergency (ER) | payer MEDICARE, MEDICAID, SELFPAY ==
[2021-05-12 19:18] VITALS: BP 169/61; PULSE 74; RESP 18; TEMP 36.6; O2SAT 74; BMI 33.0
[2021-05-12 20:30] VITALS: BP 122/71; PULSE 86; RESP 16; TEMP 36.8
[2021-05-12 20:49] LABS: Appearance Urine CLEAR; Color Urine YELLOW; Glucose Urine UA NEG (NEG); Leukocyte Esterase Urine NEG (NEG); Nitrite Urine NEG (NEG); Urine Blood NEG (NEG); Urine Ketones NEG (NEG); Urine Protein NEG (NEG-TRACE)
--- NOTE | 2021-05-12 20:55 | ED_ITS ---
HPI - Abdominal Pain General Chief Complaint: Abdominal Pain Stated Complaint: Abdominal pain/16 Weeks preg Time Seen by Provider: 05/12/21 20:33 Source: patient Mode of arrival: ambulatory Limitations: no limitations History of Present Illness HPI narrative: 20-year-old female LMP 01/19/2021, YOLANDA 10/26/2021, 16 weeks history of Crohn's disease with small bowel obstructions who presents emergency department for evaluation of nausea, vomiting, diarrhea and headache. Patient states that she has had a headache for approximately 1 week. She describes it as an intermittent pressure-like sensation located throughout her entire head. The pain comes on and off in usually goes away at night and has p ersistent throughout the day. The pain is 6/10 at its worst. Patient states that since this morning she developed persistent nausea. She had 1 episode emesis while she was waiting in the emergency department . She describes the emesis as a large volume with no blood. She states that she has had for soft stools throughout the day with no blood in the stool. She is complaining abdominal pain. She points to her upper abdomen and left lower quadrant when asked to localize the pain. The pain is an intermittent cramping sensation. She states that she has had similar presentations when she has had a flare-up of her Crohn's disease and she has had small bowel obstructions. She states that she has had chills but no fever. She denies cough. She does feel short of breath. She is having myalgias. The patient is on the biologic, Stelara which she gets every 8 months and she states she has in her middle of her dose. 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 Related Data Home Medications Medication Instructions Recorded Confirmed omeprazole 20 mg capsule,delayed 20 mg PO DAILY 03/08/20 11/04/20 release propranolol 10 mg tablet 10 mg PO BID 03/08/20 11/04/20 valacyclovir 1 gram tablet 1,000 mg PO DAILY 03/08/20 11/04/20 ondansetron HCl 4 mg tablet 4 mg PO Q6H PRN 05/10/20 11/04/20 promethazine 12.5 mg tablet 12.5 mg PO Q6H PRN 05/10/20 11/04/20 ustekinumab 90 mg/mL subcutaneous 90 mg SUBCUT DIRECTED 05/10/20 11/04/20 syringe Previous Rx's Medication Instructions Recorded dicyclomine 20 mg tablet 20 mg PO TID #20 tab 03/03/20 ondansetron 4 mg disintegrating 4 mg PO Q6H PRN #20 tab 03/03/20 tablet metoclopramide HCl 10 mg tablet 10 mg PO Q6H PRN #20 tab 05/12/21 (Reglan) Allergies Allergy/AdvReac Type Severity Reaction Status Date / Time amoxicillin [AMOXICILLIN] Allergy Intermediate CHRON'S Verified 05/12/21 19:18 FLARE UP, vomiting azathioprine [AZATHIOPRINE] Allergy Unknown PANCREATITI Verified 05/12/21 19:18 S Penicillins [PENICILLINS] AdvReac Unknown NAUSEA, Verified 05/12/21 19:18 CHRONS FLARE UP Review of Systems Review of Systems Yes all other systems are reviewed and are negative Physical Exam Vital Signs: Vital Signs: Last Vital Signs Temp 98.2 F 05/12/21 20:30 Pulse 86 05/12/21 20:30 Resp 16 05/12/21 20:30 BP 122/71 05/12/21 20:30 Pulse Ox 74 L 05/12/21 19:18 BMI result Body Mass Index 33.0 Const: General: cooperative and no acute distress Orientation/consci ousness: oriented to person and oriented to place Limitations: no limitations HENMT: Head: Yes normal to inspection, Yes normocephalic and Yes atraumatic Ears: external ears normal General nose exam: Normal external nose present Face and sinus: Yes normal facial exam Mouth: Normal oral and palatal mucosa present Throat: Yes posterior oropharynx normal Eyes: General: appearance normal, both eyes and all related structures Pupils: Equal, round and reactive pupils present Neck: Neck: Yes normal visual inspection, Yes no lymphadenopathy, Yes trachea midline and Yes supple Chest: Chest palpation & inspection: normal inspection of the chest and normal palpation of entire chest wall Resp: Effort & Inspection: normal respiratory effort and able to speak in complete sentences Auscultation: clear to auscultation bilaterally Cardio: Rate: regular rate Rhythm: regular rhythm Heart sounds: S1 n ormal heart sound present, S2 normal heart sound present and no murmurs GI: Inspection: Yes normal to inspection Palpation (GI): Soft to palpation, Tenderness to palpation present (GI) in the epigastrum (Mild), in the LLQ (Mild) and in the LUQ (Mild) and no guarding Auscultation: normal bowel sounds : General: Yes no CVA tenderness Back/Spine/Pelvis: Back: no CVA tenderness Skin: General skin exam: no rashes or lesions noted Neuro: General: oriented to person and oriented to place Cranial nerves: Yes CN's II-XII intact bilaterally and Yes Equal, round and reactive pupils present Cognition (Neuro): normal cognition Motor exam (neuro): 5/5 motor strength present throughout Extrem: General: Yes normal to inspection Psych: Appearance: grossly normal Speech and movement: Normal speech and movement present Affect: normal affect Attitude: cooperative Thought process: Normal thought process present Thought content: Normal thought content present Course Course Course Narrative: 25-year-old female, , 16 weeks who presents emergency department for evaluation of nausea, vomiting, diarrhea, headache and abdominal pain. Patient does have a history of Crohn's and has had similar presentations in the past flare-up of her Crohn's disease. She has also had small bowel partial small bowel obstructions in the past. The patient is on a biologic for Crohn's disease. She had 2 Pfizer COVID-19 vaccines. Vital signs initially revealed a blood pressure of 169/61 with repeat of 122/71, the patient's pulse, respiratory rate and temperature were normal. O2 saturation and believe was also recorded 74% on room air. Physical examination did reveal midepigastric and left-sided abdominal tenderness otherwise was unremarkable. I ordered a laboratory evaluation and a COVID-19 swab. Patient will be treated with Reglan 10 mg IV and Benadryl 50 mg IV for her headache and for nausea and vomiting. I also ordered normal saline x1 L. 2238: The patient is feeling significantly better after the above treatment. Laboratory evaluation [place] [id number] which may be related to her otherwise are no other significant findings. COVID-19 test was negative. Urinalysis was negative. At this time I do not think that her symptoms are due to a Crohn's flare-up but I told her to contact her GI specialist tomorrow to discuss her symptoms to see if they want a started a course of steroids. Patient will be discharged home with a prescription for Reglan. MDM - Abdominal Pain Lab Data Result diagrams: 05/12/21 21:13 05/12/21 21:13 Labs: Lab Results 05/12/21 05/12/21 05/12/21 Range/Units 20:28 20:28 21:13 WBC 15.6 H (4.8-10.8) X10*3/uL RBC 4.39 (4.20-5.50) X10*6/uL Hgb 12.8 (12.0-16.0) g/dl Hct 38.2 (37.0-47.0) % MCV 87.0 (80.0-98.0) fL MCH 29.2 (27.0-33.0) pg MCHC 33.5 (31.0-35.0) g/dl RDW 13.8 (11.0-16.0) % Plt Count 249 (160-400) X10*3/uL MPV 9.5 (9.4-12.3) fL Immature Gran % (Auto) 0.5 H (0.0-0.4) % Neut % (Auto) 88.9 H (45-73) % Lymph % (Auto) 7.1 L (20-40) % [place] % (Auto) 3.1 (2-11) % Eos % (Auto) 0.2 (0-4) % Baso % (Auto) 0.2 (0-2) % Lymph # (Auto) 1.1 L (1.2-4.9) X10*3/uL [place] # (Auto) 0.5 (0.1-1.2) X10*3/uL Eos # (Auto) 0.0 (0.0-0.4) X10*3/uL Baso # (Auto) 0.0 (0.0-0.2) X10*3/uL Abs Immat Gran (auto) 0.08 H (0.00-0.03) X10*3/uL Absolute Neuts (auto) 13.8 H (2.0-8.3) x10*3/uL Absolute Nucleated RBC 0.000 (0.0-0.012) X10*3/uL Nucleated RBC % (auto) 0.0 (0.0-0.2) /100WBC Sodium (135-145) mmol/L Potassium (3.3-5.1) mmol/L Chloride (96-108) mmol/L Carbon Dioxide (22-29) mmol/L Anion Gap (12-20) BUN (9-16) mg/dL Creatinine (0.5-1.4) mg/dL Estim Creat Clear Calc Estimated GFR Random Glucose (60-115) mg/dL Calcium (8.4-10.2) mg/dL Total Bilirubin (0.0-1.0) mg/dL AST (5-31) U/L ALT (0-31) U/L Alkaline Phosphatase (39-117) U/L Total Protein (6.5-8.0) g/dL Albumin (3.5-5.0) g/dL Lipase (8-78) U/L Urine Color YELLOW Urine Appearance CLEAR Urine pH 7.0 (5.0-8.0) Ur Specific [place] 1.010 (1.005-1.025) Urine Protein NEG (NEG-TRACE) MG/DL Urine Glucose (UA) NEG (NEG) MG/DL Urine Ketones NEG (NEG) MG/DL Urine Blood NEG (NEG) Urine Nitrite NEG (NEG) Ur Leukocyte Esterase NEG (NEG) Urine Test POSITIVE H (NEGATIVE) COVID-19 (DIO) (Negative) COVID-19 Clin Com 05/12/21 05/12/21 05/12/21 Range/Units 21:13 21:13 21:13 WBC (4.8-10.8) X10*3/uL RBC (4.20-5.50) X10*6/uL Hgb (12.0-16.0) g/dl Hct (37.0-47.0) % MCV (80.0-98.0) fL MCH (27.0-33.0) pg MCHC (31.0-35.0) g/dl RDW (11.0-16.0) % Plt Count (160-400) X10*3/uL MPV (9.4-12.3) fL Immature Gran % (Auto) (0.0-0.4) % Neut % (Auto) (45-73) % Lymph % (Auto) (20-40) % [place] % (Auto) (2-11) % Eos % (Auto) (0-4) % Baso % (Auto) (0-2) % Lymph # (Auto) (1.2-4.9) X10*3/uL [place] # (Auto) (0.1-1.2) X10*3/uL Eos # (Auto) (0.0-0.4) X10*3/uL Baso # (Auto) (0.0-0.2) X10*3/uL Abs Immat Gran (auto) (0.00-0.03) X10*3/uL Absolute Neuts (auto) (2.0-8.3) x10*3/uL Absolute Nucleated RBC (0.0-0.012) X10*3/uL Nucleated RBC % (auto) (0.0-0.2) /100WBC Sodium 137 (135-145) mmol/L Potassium 4.3 (3.3-5.1) mmol/L Chloride 104 (96-108) mmol/L Carbon Dioxide 26 (22-29) mmol/L Anion Gap 11 L (12-20) BUN 7 L (9-16) mg/dL Creatinine 0.61 (0.5-1.4) mg/dL Estim Creat Clear Calc 148.0 Estimated GFR > 60 Random Glucose 89 (60-115) mg/dL Calcium 9.5 (8.4-10.2) mg/dL Total Bilirubin 0.3 (0.0-1.0) mg/dL AST 13 (5-31) U/L ALT 16 (0-31) U/L Alkaline Phosphatase 47 (39-117) U/L Total Protein 6.8 (6.5-8.0) g/dL Albumin 3.7 (3.5-5.0) g/dL Lipase 14 (8-78) U/L Urine Color Urine Appearance Urine pH (5.0-8.0) Ur Specific [place] (1.005-1.025) Urine Protein (NEG-TRACE) MG/DL Urine Glucose (UA) (NEG) MG/DL Urine Ketones (NEG) MG/DL Urine Blood (NEG) Urine Nitrite (NEG) Ur Leukocyte Esterase (NEG) Urine Test (NEGATIVE) COVID-19 (DIO) Negative (Negative) COVID-19 Clin Com See Note Discharge Plan Discharge Clinical Impression: Vomiting affecting , Acute dehydration, Headache Patient Disposition: Home, Self-Care Instructions: Nausea and Vomiting in (ED) Additional Instructions: Your laboratory evaluation [place] [id number] however I believe this could be related to her and is not caused by an infection or inflammatory process. Your urinalysis was unremarkable. Your COVID-19 test was negative. Sometimes within the 1st 1-4 days of a COVID infection a COVID test can be falsely negative however I do not think that your symptoms at this time are consistent with COVID. If you developed more flu-like symptoms then you should consider getting a repeat COVID test as an outpatient. Call your scales inspector tomorrow to discuss your symptoms to see if they think you are having a Crohn's flare-up and to see if you would benefit from a course of steroids. I want you to take the following 3 medications together every 6 hours as needed for headache, nausea or vomiting. Reglan (metoclopramide) in 10 mg, 1 pill Benadryl 25 mg, 2 pills Extra-strength Tylenol 2 pills After you take these medications, lie down in a dark quiet room and try to fall asleep. These medications will make you sleepy, do not drive or work after taking these medications. Stay on a brat diet (bananas, rice, applesauce, tea, toast) for the next 24 hours Follow-up with your doctor in 2 days. Please return to the emergency department if your symptoms get worse or if you develop any symptoms that are concerning to you. Prescriptions: New metoclopramide HCl [Reglan] 10 mg tablet 10 mg PO Q6H PRN (Reason: nausea and vomiting) Qty: 20 RF: 0 No Action ondansetron 4 mg tablet,disintegrating 4 mg PO Q6H PRN (Reason: nausea and vomiting) Qty: 20 RF: 0 dicyclomine 20 mg tablet 20 mg PO TID Qty: 20 RF: 0 omeprazole 20 mg capsule,delayed release(DR/EC) 20 mg PO DAILY RF: 0 propranolol 10 mg tablet 10 mg PO BID RF: 0 valacyclovir 1 gram tablet 1,000 mg PO DAILY RF: 0 ondansetron HCl 4 mg tablet 4 mg PO Q6H PRN (Reason: nausea) RF: 0 promethazine 12.5 mg tablet 12.5 mg PO Q6H PRN (Reason: nausea) RF: 0 Stelara 90 mg/mL syringe 90 mg subcut DIRECTED RF: 0 PMFSH Past Medical History Medical History Acute Crohn's disease with intestinal obstruction Bipolar 1 disorder, depressed Eating disorder Pelvic floor dysfunction Surgical History History of appendectomy History of bowel resection History of cholecystectomy Family History Family History Maternal Grandmother Brain cancer Paternal Grandmother Lung cancer Father Skin cancer Diabetes Heart disease Asthma Maternal Grandfather Diabetes Maternal Grandmother Diabetes Paternal Grandfather Diabetes Paternal Grandmother Diabetes Mother Heart disease Social History Social History Alcohol intake: never Substance Use Type: Marijuana Advance Directives: No Advance Directives Information Provided: Yes Patient : Yes Sexual orientation: Straight/Heterosexual Gender identity: Female
[2021-05-12 20:57] LABS: UPreg QC Valid YES; Urine Pregnancy POSITIVE (NEGATIVE)
[2021-05-12 21:21] LABS: MANUAL DIFF FLAG NO
[2021-05-12 21:23] LABS: Basophils Percent Auto 0.2 % (0-2); Eosinophils Percent Auto 0.2 % (0-4); Hematocrit 38.2 % (37.0-47.0); Hemoglobin 12.8 g/dl (12.0-16.0); Imm Gran Abs Auto 0.08 X10*3/uL (0.00-0.03); Imm Gran Pct Auto 0.5 % (0.0-0.4); Lymphocytes Absolute Auto 1.1 X10*3/uL (1.2-4.9); Lymphocytes Percent Auto 7.1 % (20-40); Mean Corpuscular HGB Conc 33.5 g/dl (31.0-35.0); Mean Corpuscular Hemoglobin 29.2 pg (27.0-33.0); Mean Platelet Volume 9.5 fL (9.4-12.3); Monocytes Absolute Auto 0.5 X10*3/uL (0.1-1.2); Monocytes Percent Auto 3.1 % (2-11); Neutrophils Absolute Auto 13.8 x10*3/uL (2.0-8.3); Neutrophils Percent Auto 88.9 % (45-73); Platelet Count 249 X10*3/uL (160-400); Red Blood Count 4.39 X10*6/uL (4.20-5.50); Red Cell Distribution Width 13.8 % (11.0-16.0); White Blood Count 15.6 X10*3/uL (4.8-10.8)
[2021-05-12 21:42] LABS: Alanine Aminotransferase 16 U/L (0-31); Albumin Level 3.7 g/dL (3.5-5.0); Alkaline Phosphatase 47 U/L (39-117); Anion Gap 11 (12-20); Aspartate Amino Transferase 13 U/L (5-31); Bilirubin Total 0.3 mg/dL (0.0-1.0); Blood Urea Nitrogen 7 mg/dL (9-16); Calcium 9.5 mg/dL (8.4-10.2); Carbon Dioxide 26 mmol/L (22-29); Chloride 104 mmol/L (96-108); Estimated Glomerular Filt Rate > 60; Glucose Random 89 mg/dL (60-115); Lipase 14 U/L (8-78); Potassium 4.3 mmol/L (3.3-5.1); Sodium 137 mmol/L (135-145); Total Protein 6.8 g/dL (6.5-8.0)
[2021-05-12 21:47] LABS: COVID-19 Test Negative (Negative)
[2021-05-12] MEDS: 0.9 % Sodium Chloride 1,000 ML 999 ML IV (21:50)
[2021-05-12] MEDS: Metoclopramide HCl 10 MG/2 ML VIAL IVPUSH (21:50)
[2021-05-12] MEDS: diphenhydrAMINE HCL 50 MG/ML VIAL IVPUSH (21:50)
== END 2021-05-13 00:19 | disposition home or self-care (01) ==
PROVIDERS: Emergency Provider Emergency Medicine Emergency Medical Services; PCP Family Medicine
DX: O21.9 Vomiting of pregnancy, unspecified (principal); O26.892 Other specified pregnancy related conditions, second trimester; E86.0 Dehydration; R51.9 Headache, unspecified; O99.612 Diseases of the digestive system complicating pregnancy, second trimester; K50.90 Crohn's disease, unspecified, without complications; Z3A.16 16 weeks gestation of pregnancy; Z20.822 Contact with and (suspected) exposure to COVID-19
CPT/HCPCS: 36415; 80053; 81003; 81025; 83690; 85025; 87635; 96361; 96374; 96375; 99284; J1200; J2765

== ENCOUNTER 2022-04-29 07:48 | Outpatient (REF) | payer MEDICARE, MEDICAID, SELFPAY ==
[2022-04-29 11:21] LABS: MANUAL DIFF FLAG NO
[2022-04-29 11:24] LABS: Basophils Percent Auto 0.4 % (0-2); Eosinophils Absolute Auto 0.2 X10*3/uL (0.0-0.4); Eosinophils Percent Auto 2.7 % (0-4); Hematocrit 44.6 % (37.0-47.0); Hemoglobin 14.5 g/dl (12.0-16.0); Imm Gran Abs Auto 0.02 X10*3/uL (0.00-0.03); Imm Gran Pct Auto 0.3 % (0.0-0.4); Lymphocytes Absolute Auto 1.7 X10*3/uL (1.2-4.9); Lymphocytes Percent Auto 23.5 % (20-40); Mean Corpuscular HGB Conc 32.5 g/dl (31.0-35.0); Mean Corpuscular Hemoglobin 27.7 pg (27.0-33.0); Mean Corpuscular Volume 85.1 fL (80.0-98.0); Mean Platelet Volume 10.6 fL (9.4-12.3); Monocytes Absolute Auto 0.5 X10*3/uL (0.1-1.2); Monocytes Percent Auto 6.7 % (2-11); Neutrophils Absolute Auto 4.9 x10*3/uL (2.0-8.3); Neutrophils Percent Auto 66.4 % (45-73); Platelet Count 325 X10*3/uL (160-400); Red Blood Count 5.24 X10*6/uL (4.20-5.50); Red Cell Distribution Width 12.5 % (11.0-16.0); White Blood Count 7.4 X10*3/uL (4.8-10.8)
[2022-04-29 12:16] LABS: Alanine Aminotransferase 25 U/L (0-31); Albumin Level 4.3 g/dL (3.5-5.0); Alkaline Phosphatase 73 U/L (39-117); Anion Gap 13 (12-20); Aspartate Amino Transferase 17 U/L (5-31); Bilirubin Total 0.5 mg/dL (0.0-1.0); Blood Urea Nitrogen 14 mg/dL (9-16); Calcium 9.3 mg/dL (8.4-10.2); Carbon Dioxide 26 mmol/L (22-29); Chloride 104 mmol/L (96-108); Estimated Glomerular Filt Rate > 60; Glucose Fasting 89 mg/dL (60-99); Iron 59 mcg/dL (30-160); Percent Iron Saturation 19 % (15-50); Potassium 4.7 mmol/L (3.3-5.1); Sodium 138 mmol/L (135-145); Thyroid Stimulating Hormone 1.01 uIU/mL (0.32-4.0); Total Iron Binding Capacity 316 mcg/dL (228-428); Total Protein 7.1 g/dL (6.5-8.0); Unsaturated Iron Binding 257 ug/dL
== END 2022-04-29 07:49 | disposition home or self-care (01) ==
LOC: HO.HMGCLDS 07:48
PROVIDERS: PCP Family Medicine; Visit Provider Family Medicine
DX: E11.9 Type 2 diabetes mellitus without complications (principal); E66.9 Obesity, unspecified; R53.83 Other fatigue; D50.9 Iron deficiency anemia, unspecified
CPT/HCPCS: 36415; 80053; 83540; 84443; 85025

== ENCOUNTER 2022-05-25 07:53 | Outpatient (REF) | payer MEDICARE, MEDICAID, SELFPAY ==
--- NOTE | ~2022-05-25 | XR_ITS ---
EXAMINATION: XR CHEST CLINICAL INFORMATION: Shortness of breath and wheezing COMPARISON: 05/28/2019 TECHNIQUE: 2 views of the chest were obtained. FINDINGS: No significant abnormality is noted involving the heart, lungs, mediastinum, bony thorax or soft tissues. XR/XR chest 2V IMPRESSION: Unremarkable examination.
[2022-05-25 11:17] LABS: MANUAL DIFF FLAG NO
[2022-05-25 11:24] LABS: Basophils Absolute Auto 0.1 X10*3/uL (0.0-0.2); Basophils Percent Auto 0.5 % (0-2); Eosinophils Absolute Auto 0.5 X10*3/uL (0.0-0.4); Eosinophils Percent Auto 5.5 % (0-4); Hematocrit 45.6 % (37.0-47.0); Hemoglobin 14.5 g/dl (12.0-16.0); Imm Gran Abs Auto 0.12 X10*3/uL (0.00-0.03); Imm Gran Pct Auto 1.3 % (0.0-0.4); Lymphocytes Absolute Auto 2.1 X10*3/uL (1.2-4.9); Lymphocytes Percent Auto 22.5 % (20-40); Mean Corpuscular HGB Conc 31.8 g/dl (31.0-35.0); Mean Corpuscular Hemoglobin 27.7 pg (27.0-33.0); Mean Corpuscular Volume 87.2 fL (80.0-98.0); Mean Platelet Volume 10.4 fL (9.4-12.3); Monocytes Absolute Auto 0.6 X10*3/uL (0.1-1.2); Monocytes Percent Auto 6.3 % (2-11); Neutrophils Percent Auto 63.9 % (45-73); Platelet Count 354 X10*3/uL (160-400); Red Blood Count 5.23 X10*6/uL (4.20-5.50); Red Cell Distribution Width 12.5 % (11.0-16.0); White Blood Count 9.4 X10*3/uL (4.8-10.8)
[2022-05-25 11:41] LABS: C Reactive Protein 1.25 mg/dL (< or = 0.50)
[2022-05-25 12:03] LABS: Erythrocyte Sedimentation Rate 5 MM/HR (0-20)
== END 2022-05-25 07:54 | disposition home or self-care (01) ==
LOC: HO.HMGCX 07:53
PROVIDERS: PCP Family Medicine; Visit Provider Internal Medicine
DX: K50.00 Crohn's disease of small intestine without complications (principal); R19.7 Diarrhea, unspecified; R06.02 Shortness of breath
CPT/HCPCS: 36415; 71046; 80299; 82542; 85025; 85652; 86140

== ENCOUNTER 2022-05-26 11:01 | Outpatient (REF) | payer MEDICARE, MEDICAID, SELFPAY ==
--- NOTE | ~2022-05-26 | CT_ITS ---
EXAMINATION: CT ANGIOGRAM OF THE CHEST WITH CONTRAST (CT PULMONARY ANGIOGRAM FOR PE) CLINICAL INFORMATION: Acute shortness of breath and wheezing. Evaluate for pulmonary embolism. COMPARISON: CXR from 05/25/2022 TECHNIQUE: Prior to contrast administration, noncontrast localization images were obtained. Subsequently, multidetector volumetric imaging was performed from the thoracic inlet to below the diaphragms following the administration of 65 mL Omnipaque 350 intravenous contrast. No contrast reaction reported. Sagittal, coronal, and MIP oblique sagittal reformatted images were obtained on the CT workstation, uploaded to PACS, and reviewed. This CT examination was performed using dose optimization techniques as appropriate, variously including the following: *Automated exposure control *Adjustment of mA and/or kV according to patient size (this includes techniques or standardized protocols for targeted exams where dose is matched to indication/reason for exam; i.e. extremities or head) *Use of iterative reconstruction technique DLP: Total exam dose-length product 179 mGy-cm FINDINGS: LUNGS AND PLEURA: Trachea and central airways are widely patent and normal in caliber. The bronchial mejia are diffusely mildly thickened. Mild paraseptal emphysema. No pulmonary edema or pleural effusion. No evidence of lung nodule or mass. No interstitial disease. QUALITY OF STUDY/CONTRAST BOLUS: Borderline satisfactory with main pulmonary artery achieving attenuation of 200 HU. CARDIOVASCULAR: Pulmonary arteries are normal in size. No embolic filling defects are identified within the main, lobar or segmental vessels. The heart size is normal. No pericardial effusion. Thoracic aorta has normal caliber and contour. No aortic aneurysm or dissection. MEDIASTINUM/LOWER NECK: There is residual thymic tissue within the anterosuperior mediastinum without evidence of mediastinal mass. The esophagus and visualized portion of the thyroid gland are unremarkable. LYMPHATICS: No pathologic sized axillary, hilar or mediastinal lymph nodes. UPPER ABDOMEN: No contrast reflux into the inferior vena cava. No acute findings in the visualized upper abdomen. The liver has density of approximately 35 Hounsfield units, consistent with steatosis. OSSEOUS STRUCTURES: No acute or suspicious osseous abnormality. CT/CT angio chest PE protocol IMPRESSION: * No evidence of pulmonary embolism. * Mild paraseptal emphysema. * The finding of mild diffuse thickening of airway mejia requires clinical correlation. This could be a manifestation of asthma or bronchitis. No pneumonia. * Diffuse hepatic steatosis.
[2022-05-26] MEDS: iohexoL 350 MG/ML 100 ML INFUS..BTL 65 ML IV (11:55)
== END 2022-05-26 11:02 | disposition home or self-care (01) ==
LOC: HO.CT 11:01
PROVIDERS: PCP Family Medicine; Visit Provider Family Medicine
DX: R06.02 Shortness of breath (principal); R06.2 Wheezing
CPT/HCPCS: 71275; Q9967

== ENCOUNTER 2022-12-28 14:34 | Outpatient (REF) | payer OTHER, SELFPAY ==
[2022-12-28 16:08] LABS: MANUAL DIFF FLAG NO
[2022-12-28 16:13] LABS: Basophils Absolute Auto 0.1 X10*3/uL (0.0-0.2); Basophils Percent Auto 0.4 % (0-2); Eosinophils Absolute Auto 0.2 X10*3/uL (0.0-0.4); Eosinophils Percent Auto 1.8 % (0-4); Hematocrit 43.8 % (37.0-47.0); Hemoglobin 14.1 g/dl (12.0-16.0); Imm Gran Abs Auto 0.03 X10*3/uL (0.00-0.03); Imm Gran Pct Auto 0.3 % (0.0-0.4); Lymphocytes Absolute Auto 2.2 X10*3/uL (1.2-4.9); Lymphocytes Percent Auto 19.4 % (20-40); Mean Corpuscular HGB Conc 32.2 g/dl (31.0-35.0); Mean Corpuscular Hemoglobin 28.2 pg (27.0-33.0); Mean Corpuscular Volume 87.6 fL (80.0-98.0); Monocytes Absolute Auto 0.6 X10*3/uL (0.1-1.2); Neutrophils Absolute Auto 8.3 x10*3/uL (2.0-8.3); Neutrophils Percent Auto 73.1 % (45-73); Platelet Count 364 X10*3/uL (160-400); Red Cell Distribution Width 12.4 % (11.0-16.0); White Blood Count 11.4 X10*3/uL (4.8-10.8)
[2022-12-28 16:41] LABS: Alanine Aminotransferase 11 U/L (0-31); Albumin Level 4.3 g/dL (3.5-5.0); Alkaline Phosphatase 63 U/L (39-117); Aspartate Amino Transferase 12 U/L (5-31); Bilirubin Direct 0.1 mg/dL (0.0-0.5); Bilirubin Total 0.3 mg/dL (0.0-1.0); Lipase 25 U/L (8-78); Total Protein 7.6 g/dL (6.5-8.0)
[2022-12-28 17:07] LABS: Erythrocyte Sedimentation Rate 2 MM/HR (0-20)
== END 2022-12-28 14:35 | disposition home or self-care (01) ==
LOC: HO.HMGCLDS 14:34
PROVIDERS: PCP Family Medicine; Visit Provider Internal Medicine
DX: K50.80 Crohn's disease of both small and large intestine without complications (principal); R19.7 Diarrhea, unspecified
CPT/HCPCS: 36415; 80076; 83690; 85025; 85652; 86140

== ENCOUNTER 2022-12-29 05:15 | Outpatient (REF) | payer OTHER, SELFPAY ==
[2022-12-29 14:32] LABS: CDiff Gene PCR NEGATIVE (Negative)
[2023-01-05 00:03] LABS: Calprotectin, Fecal 56 mcg/g
== END 2022-12-29 05:16 | disposition home or self-care (01) ==
LOC: HO.HMGCLNP 05:15
PROVIDERS: PCP Family Medicine; Visit Provider Internal Medicine
DX: K50.80 Crohn's disease of both small and large intestine without complications (principal); R19.7 Diarrhea, unspecified
CPT/HCPCS: 83993; 87493

== ENCOUNTER 2023-06-20 17:39 | Emergency (ER) | payer OTHER, SELFPAY ==
[2023-06-20 17:49] VITALS: BP 149/82; PULSE 91; RESP 18; TEMP 36.5; O2SAT 98; BMI 39.7
--- NOTE | 2023-06-20 17:51 | ED.GENADULT ---
HPI - General Adult General Chief complaint: Nausea/Vomiting/Diarrhea Stated complaint: having a miscarriage, in a lot of pain Related Data Home Medications Medication Instructions Recorded Confirmed omeprazole 20 mg capsule,delayed 20 mg PO DAILY 03/08/20 11/04/20 release propranolol 10 mg tablet 10 mg PO BID 03/08/20 11/04/20 valacyclovir 1 gram tablet 1,000 mg PO DAILY 03/08/20 11/04/20 ondansetron HCl 4 mg tablet 4 mg PO Q6H PRN nausea 05/10/20 11/04/20 ustekinumab 90 mg/mL subcutaneous 90 mg subcut DIRECTED 05/10/20 11/04/20 syringe aripiprazole 10 mg tablet 10 mg PO DAILY 11/08/21 methylphenidate HCl 20 mg biphasic 20 mg PO QAM 08/15/22 50-50 capsule,extended release Previous Rx's Medication Instructions Recorded dicyclomine 20 mg tablet 20 mg PO TID #20 tabs 03/03/20 ondansetron 4 mg disintegrating 4 mg PO Q6H PRN nausea and 03/03/20 tablet vomiting #20 tabs metoclopramide HCl 10 mg tablet 10 mg PO Q6H PRN nausea and 05/12/21 (Reglan) vomiting #20 tabs hydrocortisone 2.5 % topical 1 appl topical BID #20 grams 11/08/21 ointment azithromycin 250 mg tablet See Rx Instructions PO .COMPLEX #6 08/15/22 tabs Allergies Allergy/AdvReac Type Severity Reaction Status Date / Time amoxicillin [AMOXICILLIN] Allergy Intermediate CHRON'S Verified 06/20/23 17:49 FLARE UP, vomiting azathioprine [AZATHIOPRINE] Allergy Unknown PANCREATITI Verified 06/20/23 17:49 S Penicillins [PENICILLINS] AdvReac Unknown NAUSEA, Verified 06/20/23 17:49 CHRONS FLARE UP PMFSH Past Medical History Medical History Acute Crohn's disease with intestinal obstruction Bipolar 1 disorder, depressed Eating disorder Pelvic floor dysfunction Surgical History History of appendectomy History of bowel resection History of cholecystectomy Family History Family History Maternal Grandmother Brain cancer Paternal Grandmother Lung cancer Father Skin cancer Diabetes Heart disease Asthma Maternal Grandfather Diabetes Maternal Grandmother Diabetes Paternal Grandfather Diabetes Paternal Grandmother Diabetes Mother Heart disease Social History Social History Alcohol intake: never Patient Tobacco Use Status: Never used Tobacco Substance Use Type: Marijuana Sexual orientation: Straight/Heterosexual Gender identity: Female Course Course Course Narrative: Patient was 7 or 8 weeks , had a miscarriage several days ago and continues with pelvic pain and bleeding Labs and ultrasound are ordered including beta hCG and Rh This is rapid medical exam done in triage pending full evaluation and disposition by ER provider Discharge Plan Discharge Prescriptions: No Action ondansetron 4 mg tablet,disintegrating 4 mg PO Q6H PRN (Reason: nausea and vomiting) Qty: 20 0RF dicyclomine 20 mg tablet 20 mg PO TID Qty: 20 0RF metoclopramide HCl [Reglan] 10 mg tablet 10 mg PO Q6H PRN (Reason: nausea and vomiting) Qty: 20 0RF aripiprazole 10 mg tablet 10 mg PO DAILY hydrocortisone 2.5 % ointment 1 appl topical BID Qty: 20 0RF methylphenidate HCl 20 mg capsule,ER biphasic 50-50 20 mg PO QAM azithromycin 250 mg tablet See Rx Instructions PO .COMPLEX Qty: 6 0RF Rx Instructions: take 500 mg today (day 1), then 250 mg for 4 days (days 2-5) PO omeprazole 20 mg capsule,delayed release(DR/EC) 20 mg PO DAILY propranolol 10 mg tablet 10 mg PO BID valacyclovir 1 gram tablet 1,000 mg PO DAILY ondansetron HCl 4 mg tablet 4 mg PO Q6H PRN (Reason: nausea) Stelara 90 mg/mL syringe 90 mg subcut DIRECTED
[2023-06-20] MEDS: Ondansetron ODT 4 MG TAB.RAPDIS TRANSLINGU (17:54)
== END 2023-06-20 19:50 | disposition left against medical advice (07) ==
LOC: HO.ED 19:47
PROVIDERS: Emergency Provider Emergency Medicine; PCP Family Medicine
DX: R10.2 Pelvic and perineal pain (principal)
CPT/HCPCS: 99281; 99283

== ENCOUNTER → 2024-01-10 14:35 | Outpatient (RCR) | payer MEDICARE, OTHER, MEDICAID, SELFPAY ==
[2020-05-04 11:25] LABS: MANUAL DIFF FLAG NO
[2020-05-04 11:33] LABS: Basophils Percent Auto 0.6 % (0-2); Eosinophils Absolute Auto 0.2 X10*3/uL (0.0-0.4); Eosinophils Percent Auto 3.2 % (0-4); Hematocrit 33.8 % (37-47); Hemoglobin 10.2 g/dl (12.0-16.0); Imm Gran Abs Auto 0.02 X10*3/uL (0.00-0.03); Imm Gran Pct Auto 0.3 % (0.0-0.4); Lymphocytes Absolute Auto 1.9 X10*3/uL (1.2-4.9); Lymphocytes Percent Auto 27.4 % (20-40); Mean Corpuscular HGB Conc 30.2 g/dl (31.0-35.0); Mean Corpuscular Hemoglobin 23.7 pg (27.0-33.0); Mean Corpuscular Volume 78.6 fL (80-98); Mean Platelet Volume 8.8 fL (9.4-12.3); Monocytes Absolute Auto 0.4 X10*3/uL (0.1-1.2); Neutrophils Absolute Auto 4.3 X10*3/uL (2.0-8.3); Neutrophils Percent Auto 62.5 % (45-73); Platelet Count 368 X10*3/uL (160-400); Red Cell Distribution Width 13.4 % (11.0-16.0); White Blood Count 6.8 X10*3/uL (4.8-10.8)
[2020-05-04 11:56] LABS: Alanine Aminotransferase 17 U/L (0-31); Albumin Level 4.2 g/dL (3.5-5.0); Alkaline Phosphatase 51 U/L (39-117); Anion Gap 10 (12-20); Aspartate Amino Transferase 15 U/L (5-31); Bilirubin Total 0.3 mg/dL (0.0-1.0); Blood Urea Nitrogen 13 mg/dL (9-16); Carbon Dioxide 27 mmol/L (22-29); Chloride 104 mmol/L (96-108); Estimated Glomerular Filt Rate > 60; Glucose Random 93 mg/dL (60-115); Iron 23 mcg/dL (30-160); Percent Iron Saturation 5 % (15-50); Potassium 4.7 mmol/l (3.3-5.1); Sodium 136 mmol/L (135-145); Total Iron Binding Capacity 431 mcg/dL (228-428); Total Protein 6.8 g/dL (6.5-8.0); Unsaturated Iron Binding 408 ug/dL
[2020-05-04 12:20] VITALS: BP 103/69; PULSE 68; RESP 12; TEMP 36.7; O2SAT 100; BMI 28.9
[2020-05-04 12:21] LABS: Ferritin 2 ng/mL (10-122)
--- NOTE | 2020-05-04 12:54 | PM.HEMONCPN ---
Medical Summary - Medical Summary Date of Service: 05/04/20 Medical Summary: DIAGNOSIS: IRON DEFICIENCY ANEMIA. LIKELY RELATED TO UNDERLYING CROHN DISEASE. CURRENT THERAPY: Status post IV Ferrlecit July 04 through July 31, received 5 doses weekly. Interval History Interval history: This is a pleasant 24-year-old lady here for a follow-up visit. She tells me, lately she has been more fatigued, especially since January. Her Crohn's has been more active. She has had abdominal pain and diarrhea. She can not tell if she has been bleeding, sometimes the stool is rather docs though. She denies nausea or vomiting. No heartburn indigestion. She does not have a good appetite. She has actually been following up with the [facility], in the [place] area. The meetings are on Zoom. It is more like a support group, where people are asked to eat togather. She has joined did between February and April 10. It does appear to be helping somewhat. She has lost weight. She is in good spirits. Rest of the review of systems is unremarkable. She had a tele visit with Dr. Shabazz, recently. She has a [id number] visit with him scheduled for next week. Review of Systems - Constitutional Reports system reviewed and no additional complaints, except as documented - Eyes Reports system reviewed and no additional complaints, except as documented - ENT Reports system reviewed and no additional complaints, except as documented - Cardiovascular Reports system reviewed and no additional complaints, except as documented - Respiratory Reports no additional respiratory complaints - Gastrointestinal Reports system reviewed and no additional complaints, except as documented - Genitourinary Reports no additional female genitourinary complaints - Musculoskeletal Reports system reviewed and no additional complaints, except as documented - Integumentary/Breasts Skin/Breast: Reports no additional skin complaints - Neurologic Reports system reviewed and no additional complaints, except as documented - Psychiatric Reports system reviewed and no additional complaints, except as documented - Endocrine Reports no additional endocrine complaints - Hematologic/Lymphatic Reports system reviewed and no additional complaints, except as documented - Allergic/Immunologic Reports system reviewed and no additional complaints, except as documented PMFSH Medical History: Medical History (Last Reviewed 03/08/20 @ 10:12 by Stas Hampton MD) Acute Crohn's disease with intestinal obstruction Bipolar 1 disorder, depressed Eating disorder Pelvic floor dysfunction Functional capacity: independent ambulation Patient : No Family History: Family History (Last Updated 05/04/20 @ 12:27 by Angela Baldwin) Maternal Grandmother Brain cancer Paternal Grandmother Lung cancer Father Skin cancer Diabetes Heart disease Asthma Maternal Grandfather Diabetes Maternal Grandmother Diabetes Paternal Grandfather Diabetes Paternal Grandmother Diabetes Mother Heart disease Surgical History: Surgical History (Last Updated 05/04/20 @ 12:25 by Angela Baldwin) History of appendectomy History of bowel resection History of cholecystectomy Smoking status: Never smoker Home Medications and Allergies Home Medications Medication Instructions Recorded Confirmed Type aripiprazole 5 mg tablet 5 mg PO DAILY 03/08/20 05/04/20 History omeprazole 20 mg capsule,delayed 20 mg PO DAILY 03/08/20 05/04/20 History release oxcarbazepine 600 mg tablet 600 mg PO BID 03/08/20 05/04/20 History propranolol 10 mg tablet 10 mg PO BID 03/08/20 05/04/20 History trazodone 150 mg tablet 150 mg PO BEDTIME PRN 03/08/20 05/04/20 History valacyclovir 1 gram tablet 1,000 mg PO DAILY 03/08/20 05/04/20 History Allergies Allergy/AdvReac Type Severity Reaction Status Date / Time amoxicillin [AMOXICILLIN] Allergy Intermediate CHRON'S Verified 03/08/20 09:50 FLARE UP, vomiting azathioprine [AZATHIOPRINE] Allergy Unknown PANCREATITI Verified 03/08/20 09:50 S Penicillins [PENICILLINS] AdvReac Unknown NAUSEA, Verified 03/08/20 09:50 CHRONS FLARE UP Exam Vital signs: Vital Signs Temp 98.0 F 05/04/20 12:20 Pulse 68 05/04/20 12:20 Resp 12 05/04/20 12:20 BP 103/69 05/04/20 12:20 Pulse Ox 100 05/04/20 12:20 Intake & Output 05/03/20 05/04/20 05/04/20 18:59 06:59 18:59 Other: Weight 77.6 kg Weight 77.6 kg Body Mass Index 28.9 - Constitutional Present: no acute distress - Routine HEENT Exam Head: Present: normal inspection Eye: Present: normal appearance ENT: Present: mucous membranes moist - Routine Neck Exam Present: full ROM - Routine Respiratory Exam Present: CTAB - Routine Cardiovascular Exam Cardiovascular: Present: RRR, S1, S2 - Routine Abdominal Exam Present: soft, nontender - Routine Rectal Exam Patient deferred: digital exam - Routine Extremities Exam Present: nontender - Routine Back/Spine/Pelvis Exam Back/Spine: Present: full ROM - Routine Skin Exam Present: intact - Routine Neurological Exam Present: alert, oriented X3 - Routine Psychiatric Exam Present: normal affect Data - Labs CBC & Chem 7: 05/04/20 11:25 05/04/20 11:25 Labs: 05/04/20 11:25 Complete Blood Count Auto Diff Routine Comprehensive Met. Panel Routine Ferritin Routine IRON PROFILE Routine Laboratory Last Values WBC 6.8 X10*3/uL (4.8-10.8) 05/04/20 11:25 RBC 4.30 X10*6/uL (4.20-5.50) 05/04/20 11:25 Hgb 10.2 g/dl (12.0-16.0) L 05/04/20 11:25 Hct 33.8 % (37-47) L 05/04/20 11:25 MCV 78.6 fL (80-98) L 05/04/20 11:25 MCH 23.7 pg (27.0-33.0) L 05/04/20 11:25 MCHC 30.2 g/dl (31.0-35.0) L 05/04/20 11:25 RDW 13.4 % (11.0-16.0) 05/04/20 11:25 Plt Count 368 X10*3/uL (160-400) D 05/04/20 11:25 MPV 8.8 fL (9.4-12.3) L 05/04/20 11:25 Immature Gran % (Auto) 0.3 % (0.0-0.4) 05/04/20 11:25 Neut % (Auto) 62.5 % (45-73) 05/04/20 11:25 Lymph % (Auto) 27.4 % (20-40) 05/04/20 11:25 [place] % (Auto) 6.0 % (2-11) 05/04/20 11:25 Eos % (Auto) 3.2 % (0-4) 05/04/20 11:25 Baso % (Auto) 0.6 % (0-2) 05/04/20 11:25 Lymph # (Auto) 1.9 X10*3/uL (1.2-4.9) 05/04/20 11:25 [place] # (Auto) 0.4 X10*3/uL (0.1-1.2) 05/04/20 11:25 Eos # (Auto) 0.2 X10*3/uL (0.0-0.4) 05/04/20 11:25 Baso # (Auto) 0.0 X10*3/uL (0.0-0.2) 05/04/20 11:25 Abs Immat Gran (auto) 0.02 X10*3/uL (0.00-0.03) 05/04/20 11:25 Absolute Neuts (auto) 4.3 X10*3/uL (2.0-8.3) 05/04/20 11:25 Absolute Nucleated RBC 0.000 X10*3/uL (0.0-0.012) 05/04/20 11:25 Nucleated RBC % (auto) 0.0 /100WBC (0.0-0.2) 05/04/20 11:25 Sodium 136 mmol/L (135-145) 05/04/20 11:25 Potassium 4.7 mmol/l (3.3-5.1) 05/04/20 11:25 Chloride 104 mmol/L (96-108) 05/04/20 11:25 Carbon Dioxide 27 mmol/L (22-29) 05/04/20 11:25 Anion Gap 10 (12-20) L 05/04/20 11:25 BUN 13 mg/dL (9-16) 05/04/20 11:25 Creatinine 0.77 mg/dL (0.5-1.4) 05/04/20 11:25 Estim Creat Clear Calc TNP 05/04/20 11:25 Estimated GFR > 60 05/04/20 11:25 Random Glucose 93 mg/dL (60-115) 05/04/20 11:25 Calcium 9.0 mg/dL (8.4-10.2) 05/04/20 11:25 Iron 23 mcg/dL (30-160) L 05/04/20 11:25 TIBC 431 mcg/dL (228-428) H 05/04/20 11:25 % Saturation 5 % (15-50) L 05/04/20 11:25 Unsat Iron Binding 408 ug/dL 05/04/20 11:25 Ferritin 2 ng/mL (10-122) L 05/04/20 11:25 Total Bilirubin 0.3 mg/dL (0.0-1.0) 05/04/20 11:25 AST 15 U/L (5-31) 05/04/20 11:25 ALT 17 U/L (0-31) 05/04/20 11:25 Alkaline Phosphatase 51 U/L (39-117) 05/04/20 11:25 Total Protein 6.8 g/dL (6.5-8.0) 05/04/20 11:25 Albumin 4.2 g/dL (3.5-5.0) 05/04/20 11:25 Progress Note: A/P (1) Iron deficiency anemia Status: Acute Assessment and plan: This is a pleasant 24-year-old lady with a history of Crohn's disease, since the age of 14. She had to undergo a couple of surgeries for bowel obstruction. 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 Most recently she has been on Stelara. Lately her Crohn symptoms have been more active. She feels more fatigued. Hemoglobin was checked today in is 10.2. Ferritin level is 2. Previously she required Ferrlecit between July 04 in July 31, 5 weekly doses. With that her hemoglobin went up from 8.8 to 12. PLAN: I will arrange for IV Ferrlecit for next week, weekly x8. Will follow her labs monthly to make sure her anemia recovers. She will be following up with Dr. Shabazz in the near future, for her Crohn's disease. She will return in 6 months for a follow-up visit. Thank you, CC: Dr. Heri Nazario. Dr. Shabazz. Dr. Hampton. - Time Spent With Patient Total time spent is greater than 50% in coordination of care (as documented) at patient's floor/unit and/or counseling patient: 25 - 35 minutes
--- NOTE | 2020-05-04 14:54 | MHC.HEMONCMA ---
Patient came in for a follow up for iron deficiency anemia, she states she missed a few infusions in September due to her being inpatient for her eating disorder. She states she is feeling run down. Dr Rosenbaum reordered her to have Ferilicit again. I called and spoke with Madeleine, she gave me a date of 05/12/20 at 11am. I called and left a voicemail for the patient.
--- NOTE | 2020-07-07 09:43 | MHC.HEMONC ---
Spoke to pt re: rescheduled iron infusion for next Sunday, as she called yesterday asking for a re-book ( she did not show a couple months ago for treatment. I impressed upon her need for compliance.
[2020-11-04 13:23] VITALS: BP 124/75; PULSE 69; RESP 19; TEMP 36.7; O2SAT 98; BMI 28.5
[2020-11-04 13:42] LABS: MANUAL DIFF FLAG NO
[2020-11-04 13:46] LABS: Basophils Percent Auto 0.8 % (0-2); Eosinophils Absolute Auto 0.2 X10*3/uL (0.0-0.4); Eosinophils Percent Auto 3.9 % (0-4); Hematocrit 39.8 % (37-47); Hemoglobin 12.3 g/dl (12.0-16.0); Imm Gran Abs Auto 0.01 X10*3/uL (0.00-0.03); Imm Gran Pct Auto 0.2 % (0.0-0.4); Lymphocytes Absolute Auto 1.6 X10*3/uL (1.2-4.9); Lymphocytes Percent Auto 29.3 % (20-40); Mean Corpuscular HGB Conc 30.9 g/dl (31.0-35.0); Mean Corpuscular Hemoglobin 25.4 pg (27.0-33.0); Mean Corpuscular Volume 82.1 fL (80-98); Mean Platelet Volume 9.8 fL (9.4-12.3); Monocytes Absolute Auto 0.4 X10*3/uL (0.1-1.2); Monocytes Percent Auto 7.3 % (2-11); Neutrophils Absolute Auto 3.1 X10*3/uL (2.0-8.3); Neutrophils Percent Auto 58.5 % (45-73); Platelet Count 291 X10*3/uL (160-400); Red Blood Count 4.85 X10*6/uL (4.20-5.50); Red Cell Distribution Width 14.7 % (11.0-16.0); White Blood Count 5.3 X10*3/uL (4.8-10.8)
--- NOTE | 2020-11-04 14:06 | PM.HEMONCPN ---
Medical Summary - Medical Summary Date of Service: 11/04/20 Chief complaint: follow-up for: Iron deficiency anemia. Medical Summary: DIAGNOSIS: IRON DEFICIENCY ANEMIA. LIKELY RELATED TO UNDERLYING CROHN DISEASE. CURRENT THERAPY: Status post IV Ferrlecit July 04 through July 31, received 5 doses weekly. Interval History Interval history: This is a pleasant 24-year-old lady here for a follow-up visit. She tells me, she has been more tired, over the past couple of months. She feels her body is lazy. she has been trying to go for walks on a daily basis. although lately she is only going twice a week. Her Crohn's has been more active. She has had abdominal pain and diarrhea. She can not tell if she has been bleeding, sometimes the stool is rather docs though. She denies nausea or vomiting. No heartburn indigestion. She does not have a good appetite. She has actually been following up with [facility], in the [place] area. The meetings are on Zoom. It is more like a support group, where people are asked to eat togather. She has joined between February and April 10. It does appear to be helping somewhat. She has lost weight. Her period has not been too heavy. She had her IUD removed. That was causing her to bleed more. she is now using barrier methods. She is in good spirits. Rest of the review of systems is unremarkable. Review of Systems - Constitutional Reports no additional constitutional complaints, Reports fatigue, Reports lack of energy, Reports malaise, Reports weight gain - Eyes Reports no additional eye complaints - ENT Reports no additional ear, nose, mouth, and throat complaints - Cardiovascular Reports no additional cardiovascular complaints - Respiratory Reports no additional respiratory complaints - Gastrointestinal Reports no additional gastrointestinal complaints - Genitourinary Reports no additional female genitourinary complaints - Musculoskeletal Reports no additional musculoskeletal complaints - Integumentary/Breasts Skin/Breast: Reports no additional skin complaints - Neurologic Reports no additional neurologic complaints - Psychiatric Reports no additional psychiatric complaints - Endocrine Reports no additional endocrine complaints - Hematologic/Lymphatic Reports no additional hematologic/lymphatic complaints - Allergic/Immunologic Reports no additional allergic/immunologic complaints [facility] Medical History: Medical History (Last Reviewed 07/13/20 @ 00:01 by Trisha Muir DO) Acute Crohn's disease with intestinal obstruction Bipolar 1 disorder, depressed Eating disorder Pelvic floor dysfunction Functional capacity: independent ambulation Patient : No Family History: Family History (Last Reviewed 05/10/20 @ 15:39 by GEORGES Harvey) Maternal Grandmother Brain cancer Paternal Grandmother Lung cancer Father Skin cancer Diabetes Heart disease Asthma Maternal Grandfather Diabetes Maternal Grandmother Diabetes Paternal Grandfather Diabetes Paternal Grandmother Diabetes Mother Heart disease Surgical History: Surgical History (Last Reviewed 07/13/20 @ 00:01 by Trisha Muir DO) History of appendectomy History of bowel resection History of cholecystectomy Social History: Social History (Last Reviewed 07/13/20 @ 00:01 by Trisha Muir DO) Alcohol History: Alcohol intake: never Alcohol History Details: Alcohol intake frequency: does not drink Substance Use History: Use of substances other than those prescribed or required for medical reasons: Yes Substance Use Type: Marijuana Nutrition Assessment: Patient : No Sex/Gender Assessment: Sexual orientation: Straight/Heterosexual Gender identity: female Home Medications and Allergies Home Medications Medication Instructions Recorded Confirmed Type omeprazole 20 mg capsule,delayed 20 mg PO DAILY 03/08/20 11/04/20 History release propranolol 10 mg tablet 10 mg PO BID 03/08/20 11/04/20 History valacyclovir 1 gram tablet 1,000 mg PO DAILY 03/08/20 11/04/20 History ondansetron HCl 4 mg tablet 4 mg PO Q6H PRN 05/10/20 11/04/20 History promethazine 12.5 mg tablet 12.5 mg PO Q6H PRN 05/10/20 11/04/20 History ustekinumab 90 mg/mL subcutaneous 90 mg SUBCUT DIRECTED 05/10/20 11/04/20 History syringe Allergies Allergy/AdvReac Type Severity Reaction Status Date / Time amoxicillin [AMOXICILLIN] Allergy Intermediate CHRON'S Verified 11/04/20 13:30 FLARE UP, vomiting azathioprine [AZATHIOPRINE] Allergy Unknown PANCREATITI Verified 11/04/20 13:30 S Penicillins [PENICILLINS] AdvReac Unknown NAUSEA, Verified 11/04/20 13:30 CHRONS FLARE UP Exam Vital signs: Vital Signs Temp 98.1 F 11/04/20 13:23 Pulse 69 11/04/20 13:23 Resp 19 11/04/20 13:23 BP 124/75 11/04/20 13:23 Pulse Ox 98 11/04/20 13:23 Intake & Output 11/03/20 11/04/20 11/04/20 18:59 06:59 18:59 Other: Weight 76.7 kg [place] Weight in Grams [id number] Weight 76.7 kg Body Mass Index 28.5 - Constitutional Present: no acute distress - Routine HEENT Exam Head: Present: normal inspection Eye: Present: normal appearance ENT: Present: mucous membranes moist - Routine Neck Exam Present: full ROM - Routine Respiratory Exam Present: CTAB - Routine Cardiovascular Exam Cardiovascular: Present: RRR, S1, S2 - Routine Abdominal Exam Present: soft, nontender - Routine Rectal Exam Patient deferred: digital exam - Routine Extremities Exam Present: nontender - Routine Back/Spine/Pelvis Exam Back/Spine: Present: full ROM - Routine Skin Exam Present: intact - Routine Neurological Exam Present: alert, oriented X3 - Routine Psychiatric Exam Present: normal affect Data - Labs CBC & Chem 7: 11/04/20 13:35 11/04/20 13:35 Labs: 05/04/20 11:25 Complete Blood Count Auto Diff Routine Comprehensive Met. Panel Routine Ferritin Routine IRON PROFILE Routine 11/04/20 13:35 Complete Blood Count Auto Diff Routine Laboratory Last Values WBC 5.3 X10*3/uL (4.8-10.8) 11/04/20 13:35 RBC 4.85 X10*6/uL (4.20-5.50) 11/04/20 13:35 Hgb 12.3 g/dl (12.0-16.0) 11/04/20 13:35 Hct 39.8 % (37-47) 11/04/20 13:35 MCV 82.1 fL (80-98) 11/04/20 13:35 MCH 25.4 pg (27.0-33.0) L 11/04/20 13:35 MCHC 30.9 g/dl (31.0-35.0) L 11/04/20 13:35 RDW 14.7 % (11.0-16.0) 11/04/20 13:35 Plt Count 291 X10*3/uL (160-400) D 11/04/20 13:35 MPV 9.8 fL (9.4-12.3) 11/04/20 13:35 Immature Gran % (Auto) 0.2 % (0.0-0.4) 11/04/20 13:35 Neut % (Auto) 58.5 % (45-73) 11/04/20 13:35 Lymph % (Auto) 29.3 % (20-40) 11/04/20 13:35 [place] % (Auto) 7.3 % (2-11) 11/04/20 13:35 Eos % (Auto) 3.9 % (0-4) 11/04/20 13:35 Baso % (Auto) 0.8 % (0-2) 11/04/20 13:35 Lymph # (Auto) 1.6 X10*3/uL (1.2-4.9) 11/04/20 13:35 [place] # (Auto) 0.4 X10*3/uL (0.1-1.2) 11/04/20 13:35 Eos # (Auto) 0.2 X10*3/uL (0.0-0.4) 11/04/20 13:35 Baso # (Auto) 0.0 X10*3/uL (0.0-0.2) 11/04/20 13:35 Abs Immat Gran (auto) 0.01 X10*3/uL (0.00-0.03) 11/04/20 13:35 Absolute Neuts (auto) 3.1 X10*3/uL (2.0-8.3) 11/04/20 13:35 Absolute Nucleated RBC 0.000 X10*3/uL (0.0-0.012) 11/04/20 13:35 Nucleated RBC % (auto) 0.0 /100WBC (0.0-0.2) 11/04/20 13:35 Sodium 136 mmol/L (135-145) 05/04/20 11:25 Potassium 4.7 mmol/l (3.3-5.1) 05/04/20 11:25 Chloride 104 mmol/L (96-108) 05/04/20 11:25 Carbon Dioxide 27 mmol/L (22-29) 05/04/20 11:25 Anion Gap 10 (12-20) L 05/04/20 11:25 BUN 13 mg/dL (9-16) 05/04/20 11:25 Creatinine 0.77 mg/dL (0.5-1.4) 05/04/20 11:25 Estim Creat Clear Calc TNP 05/04/20 11:25 Estimated GFR > 60 05/04/20 11:25 Random Glucose 93 mg/dL (60-115) 05/04/20 11:25 Calcium 9.0 mg/dL (8.4-10.2) 05/04/20 11:25 Iron 23 mcg/dL (30-160) L 05/04/20 11:25 TIBC 431 mcg/dL (228-428) H 05/04/20 11:25 % Saturation 5 % (15-50) L 05/04/20 11:25 Unsat Iron Binding 408 ug/dL 05/04/20 11:25 Ferritin 2 ng/mL (10-122) L 05/04/20 11:25 Total Bilirubin 0.3 mg/dL (0.0-1.0) 05/04/20 11:25 AST 15 U/L (5-31) 05/04/20 11:25 ALT 17 U/L (0-31) 05/04/20 11:25 Alkaline Phosphatase 51 U/L (39-117) 05/04/20 11:25 Total Protein 6.8 g/dL (6.5-8.0) 05/04/20 11:25 Albumin 4.2 g/dL (3.5-5.0) 05/04/20 11:25 Progress Note: A/P (1) Iron deficiency anemia Status: Acute Assessment and plan: This is a pleasant 24-year-old lady with a history of Crohn's disease, since the age of 14. She had to undergo a couple of surgeries for bowel obstruction. 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 Most recently she has been on Stelara. Lately her Crohn symptoms have been more active. She feels more fatigued. Hemoglobin was checked today it is 12.3 Ferritin level is 4. Previously she required Ferrlecit between July 04 in July 31, 5 weekly doses. With that her hemoglobin went up from 8.8 to 12. She was re-treated with IV Ferrlecit x8, in August and September. she feels a bit tired however her blood count is normal. PLAN: Will Continue to follow her labs carefully, to make sure her anemia does not recur. She will be following up with Dr. Shabazz in the near future, for her Crohn's disease. She will return in 6 months for a follow-up visit. Thank you, CC: Dr. Heri Nazario. Dr. Shabazz. Dr. Hampton. - Time Spent With Patient 25 - 35 minutes
[2020-11-04 14:23] LABS: Alanine Aminotransferase 7 U/L (0-31); Albumin Level 4.4 g/dL (3.5-5.0); Alkaline Phosphatase 53 U/L (39-117); Anion Gap 13 (12-20); Aspartate Amino Transferase 14 U/L (5-31); Bilirubin Total 0.5 mg/dL (0.0-1.0); Blood Urea Nitrogen 17 mg/dL (9-16); Calcium 9.6 mg/dL (8.4-10.2); Carbon Dioxide 23 mmol/L (22-29); Chloride 108 mmol/L (96-108); Creatinine Clr Calc Pharmacy 100.5; Estimated Glomerular Filt Rate > 60; Glucose Random 92 mg/dL (60-115); Potassium 4.4 mmol/L (3.3-5.1); Sodium 140 mmol/L (135-145); Total Protein 7.5 g/dL (6.5-8.0)
[2020-11-04 14:43] LABS: Ferritin 4 ng/mL (10-122)
--- NOTE | 2020-11-04 15:20 | MHC.HEMONC ---
Pt here for Hem follow up with Dr Rosenbaum. 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 Clinical summary updated by nurse. Pt states she has fatigue, legs feel heavy States has light menses and recently had her IUD removed. Dr Rosenbaum into see pt. Follow up appointment scheduled for 6 months. Discharge packet given. Discharged home.
== END | disposition home or self-care (01) ==
LOC: HO.ONC 05-04 11:19
PROVIDERS: PCP Family Medicine; Visit Provider Internal Medicine Medical Oncology
DX: D50.9 Iron deficiency anemia, unspecified (principal); K50.90 Crohn's disease, unspecified, without complications
CPT/HCPCS: 36415; 80053; 82728; 83540; 85025; 99213; 99214

== ENCOUNTER 2024-03-13 09:38 | Emergency (ER) | payer OTHER, SELFPAY ==
--- NOTE | ~2024-03-13 | CT_ITS ---
EXAMINATION: CT LUMBAR SPINE WITHOUT CONTRAST CLINICAL INFORMATION: Low back pain. COMPARISON: None available. TECHNIQUE: Contiguous axial images through the lumbar spine using 2 mm collimation with bone and soft tissue algorithm. Sagittal and coronal reformatted images acquired. This CT examination was performed using dose optimization techniques as appropriate, variously including the following: *Automated exposure control *Adjustment of mA and/or kV according to patient size (this includes techniques or standardized protocols for targeted exams where dose is matched to indication/reason for exam; i.e. extremities or head) *Use of iterative reconstruction technique DLP; 612 mGy-cm FINDINGS: Patient's breathing motion artifact. Last rib-bearing vertebra labeled T12. No acute cortical disruption or gross malalignment in the included axial skeleton. There is normal alignment No lytic or blastic lesions. No prevertebral compartment hematoma, fluid collections or gross mass. Sutures in the intestine. Status post cholecystectomy. No hydronephrosis or nephrolithiasis in either kidney. No aneurysm, abdominal aorta. Nonspecific prominent mesenteric and retroperitoneal lymph nodes. CT/CT lumbar spine wo IV con IMPRESSION: No acute fracture or trauma-related listhesis. Electronically signed by: Sal Mitchell MD 03/13/2024 12:40 PM [facility] [place]
[2024-03-13 09:43] VITALS: BP 128/83; PULSE 71; RESP 20; TEMP 36.9; O2SAT 99; BMI 35.9
--- NOTE | 2024-03-13 11:04 | ED.GENADULT ---
HPI - General Adult General Chief complaint: Back Pain/Injury Stated complaint: back pain Time Seen by Provider: 03/13/24 11:04 Source: patient Mode of arrival: ambulatory Limitations: no limitations History of Present Illness ED Provider: Marsha Morfin PA-C HPI narrative: 28-year-old female with a PMH of Crohn's and interstitial cystitis presents to the ED with a chief complaint of lower back pain x 1 week. Denies any specific inciting event that would have triggered her back pain. She has tried Tylenol, weed and CBD cream that has not helped. She describes the pain in her back that feels like she has a softball stuck in her right lower back. Endorses some numbness or tingling down the lateral aspect of her right thing that stops just before her knee. Sensation is still intact. She is unable to tolerate any bending or twisting of her back. Denies weakness in her legs. Patient also reported having 24 hours of blood in her urine during this past week, as well as, urinary frequency and urgency. That has since resolved. Denies any urinary incontinence or numbness or tingling in her perineal or genital areas. Relieving factors: none Exacerbating factors: none Associated symptoms: denies other symptoms Treatments prior to arrival: none Related Data Home Medications ?Medication ?Instructions ?Recorded ?Confirmed omeprazole 20 mg capsule,delayed 20 mg PO DAILY 03/08/20 11/04/20 release propranolol 10 mg tablet 10 mg PO BID 03/08/20 11/04/20 valacyclovir 1 gram tablet 1,000 mg PO DAILY 03/08/20 11/04/20 ondansetron HCl 4 mg tablet 4 mg PO Q6H PRN nausea 05/10/20 11/04/20 ustekinumab 90 mg/mL subcutaneous 90 mg subcut DIRECTED 05/10/20 11/04/20 syringe aripiprazole 10 mg tablet 10 mg PO DAILY 11/08/21 methylphenidate HCl 20 mg biphasic 20 mg PO QAM 08/15/22 50-50 capsule,extended release Previous Rx's ?Medication ?Instructions ?Recorded dicyclomine 20 mg tablet 20 mg PO TID #20 tabs 03/03/20 ondansetron 4 mg disintegrating 4 mg PO Q6H PRN nausea and 03/03/20 tablet vomiting #20 tabs metoclopramide HCl 10 mg tablet 10 mg PO Q6H PRN nausea and 05/12/21 (Reglan) vomiting #20 tabs hydrocortisone 2.5 % topical 1 appl topical BID #20 grams 11/08/21 ointment azithromycin 250 mg tablet See Rx Instructions PO .COMPLEX #6 08/15/22 tabs cyclobenzaprine 5 mg tablet 5 mg PO TID PRN pain 7 days #21 03/13/24 tabs Allergies Allergy/AdvReac Type Severity Reaction Status Date / Time amoxicillin [AMOXICILLIN] Allergy Intermediate CHRON'S Verified 03/13/24 09:45 FLARE UP, vomiting azathioprine [AZATHIOPRINE] Allergy Unknown PANCREATITI Verified 03/13/24 09:45 S heparin Allergy Rash Verified 03/13/24 09:45 Penicillins [PENICILLINS] AdvReac Unknown NAUSEA, Verified 03/13/24 09:45 CHRONS FLARE UP Review of Systems Constitutional: Constitutional: Reports no additional constitutional complaints, Denies chills, Denies fever(s) and Denies night sweats Eyes: Eyes: Reports no additional eye complaints, Denies blurry vision, Denies change in vision, Denies diplopia, Denies eye discharge, Denies loss of vision and Denies eye pain ENT: Denies dizziness Cardiovascular: Cardiovascular: Reports no additional cardiovascular complaints, Denies chest pain, Denies lightheadedness, Denies Loss of Consciousness and Denies dyspnea Respiratory: Respiratory: Reports no additional respiratory complaints and Denies dyspnea Gastrointestinal: Gastrointestinal: Reports no additional gastrointestinal complaints, Denies abdominal pain, Denies melena, Denies hematochezia, Denies change in bowel habits and Denies change in stool character Genitourinary: Genitourinary: Denies hematuria, Denies urinary frequency, Denies dysuria, Denies urinary incontinence, Denies urinary hesitancy and Denies urinary urgency Musculoskeletal: Musculoskeletal: Reports back pain, Reports numbness (lateral aspect of R thigh) and Reports tingling Neurologic: Denies dizziness, Denies loss of vision, Reports numbness (lateral aspect of R thigh) and Reports tingling Psychiatric: Psychiatric: Reports no additional psychiatric complaints Endocrine: Endocrine: Reports no additional endocrine complaints Hematologic/Lymphatic: Hematologic/Lymphatic: Reports no additional hematologic/lymphatic complaints Allergic/Immunologic: Allergic/Immunologic: Reports no additional allergic/immunologic complaints PMFSH Past Medical History Attestation statement: The following information was validated with the patient. Source: old records reviewed and nursing notes reviewed Medical History Eating disorder Bipolar 1 disorder, depressed Acute Crohn's disease with intestinal obstruction Pelvic floor dysfunction Surgical History History of appendectomy History of bowel resection History of cholecystectomy Family History Family History Maternal Grandmother Brain cancer Paternal Grandmother Lung cancer Father Skin cancer Diabetes Heart disease Asthma Maternal Grandfather Diabetes Maternal Grandmother Diabetes Paternal Grandfather Diabetes Paternal Grandmother Diabetes Mother Heart disease Social History Social History Alcohol intake: never Patient Tobacco Use Status: Never used Tobacco Substance Use Type: Marijuana Advance Directives: No Advance Directives Information Provided: Yes Sexual orientation: Straight/Heterosexual Gender identity: Female Physical Exam ED Vital Signs: Vital Signs - 24 hr 03/13/24 09:43 03/13/24 12:00 03/13/24 13:42 Temperature 98.5 F 98.2 F Pulse Rate 71 68 72 Respiratory Rate 20 17 18 Blood Pressure 128/83 134/88 121/79 Pulse Oximetry 99 96 97 Oxygen Delivery Method Room Air Room Air Room Air BMI result Body Mass Index 35.9 Const General: cooperative, no acute distress, alert and awake Nutritional Appearance: well nourished Orientation/consciousness: patient oriented x3 Limitations: no limitations HENMT Head: Yes normal to inspection and Yes atraumatic Ears: hearing grossly normal bilaterally and external ears normal General nose exam: Normal external nose present, no nasal discharge noted and no epistaxis Face and sinus: Yes normal facial exam, No abrasion and No laceration Mouth: Normal oral and palatal mucosa present, no drooling and no muffled voice Eyes General: appearance normal, both eyes and all related structures Periorbital: periorbital findings normal Eyelids: Yes eyelids normal Conjunctivae: conjunctivae normal Pupils: Equal, round and reactive pupils present EOM: EOMs intact bilaterally Neck Neck: Yes normal visual inspection, Yes full ROM and Yes no lymphadenopathy Chest Chest palpation & inspection: normal inspection of the chest Resp Effort & Inspection: normal respiratory effort and able to speak in complete sentences GI Inspection: Yes normal to inspection General: Yes no CVA tenderness Back/Spine/Pelvis Back: no CVA tenderness Thoracic/Lumbar Spine: thoracic and lumbar spine normal to inspection Neuro General: patient oriented x3 and moves all extremities Cranial nerves: Yes Equal, round and reactive pupils present Cognition (Neuro): normal cognition Motor exam (neuro): 5/5 motor strength present throughout Sensory Exam: Normal double simultaneous stimulation for sensation Pupils: Normal pupillary reactivity/response: bilateral Extrem General: Yes normal to inspection, Yes full ROM and Yes capillary refill normal Psych Appearance: grossly normal Mental Status: mental status grossly normal Affect: normal affect Attitude: cooperative Thought process: Normal thought process present Thought content: Normal thought content present Insight: Good insight present (Psych) Medications Administered Discontinued Medications Generic Name Dose Route Start Last Admin Trade Name Bella PRN Reason Stop Dose Admin Diazepam 2.5 mg 03/13/24 11:24 03/13/24 11:36 Diazepam 10 Mg/2 Ml Cartridge IVPUSH 03/13/24 11:25 2.5 mg STAT STA Administration Morphine Sulfate 4 mg 03/13/24 11:24 03/13/24 11:35 Morphine Sulfate 4 Mg/Ml Cartridge IVPUSH 03/13/24 11:25 4 mg ONCE ONE Administration Protocol Ondansetron HCl 4 mg 03/13/24 11:24 03/13/24 11:35 Ondansetron Hcl 4 Mg/2 Ml Vial IVPUSH 03/13/24 11:25 4 mg ONCE ONE Administration Medical Decision Making Medical Decision Making [facility] Narrative: Patient is a 28 year old assigned female at with a history of crohn's presenting to the emergency department today with low back pain. Patient's physical exam was unremarkable. Patient's blood work was unremarkable. Patient's urine showed no acute process. Patient's CT lumbar spine showed no acute process. I explained my physical exam findings as well as all test results to the patient. I answered all questions asked by the patient. Patient's clinical presentation is most consistent with a muscle spasm. Patient received IV valium and morphine which, upon re-evaluation, she stated it helped her symptoms significantly. I stressed the importance of the patient taking her medication as directed (either prescribed or as the over the counter packaging recommends). I stressed the importance of the patient following up with her primary care provider. I stressed the importance of the patient returning to the emergency department immediately if her symptoms were to worsen or if she were to develop any dizziness, shortness of breath, difficulty breathing, chest pain, blurry vision, loss of vision, nausea, vomiting, abdominal pain, fever, chills, back pain, or any other complaints. Patient verbalized agreement and understanding with this treatment plan and discharge. Differential Diagnosis Differential Diagnoses: The differential diagnosis associated with the presentation includes Low back pain Muscle spasm Lumbar radiculopathy Admission/Observation Consideration of admission/observation: Escalation of care including admission/observation considered Patient would have been admitted to the hospital had her work up had any findings where hospital admission was appropriate and her clinical presentation warranted hospital admission. Lab Data [facility] Lab Attestation statement: I reviewed the patient's lab results. My interpretation of these results are in the [facility] Rationale portion of this note. 03/13/24 11:00 03/13/24 11:34 Labs: Lab Results 03/13/24 03/13/24 03/13/24 Range/Units 11:00 11:34 12:09 WBC 10.8 (4.8-10.8) X10*3/uL RBC 5.46 (4.20-5.50) X10*6/uL Hgb 15.6 (12.0-16.0) g/dl Hct 47.4 H (37.0-47.0) % MCV 86.8 (80.0-98.0) fL MCH 28.6 (27.0-33.0) pg MCHC 32.9 (31.0-35.0) g/dl RDW 12.7 (11.0-16.0) % Plt Count 386 (160-400) X10*3/uL MPV 10.0 (9.4-12.3) fL Immature Gran % (Auto) 0.4 (0.0-0.4) % Neut % (Auto) 67.6 (45-73) % Lymph % (Auto) 21.1 (20-40) % [place] % (Auto) 5.5 (2-11) % Eos % (Auto) 4.7 H (0-4) % Baso % (Auto) 0.7 (0-2) % Lymph # (Auto) 2.3 (1.2-4.9) X10*3/uL [place] # (Auto) 0.6 (0.1-1.2) X10*3/uL Eos # (Auto) 0.5 H (0.0-0.4) X10*3/uL Baso # (Auto) 0.1 (0.0-0.2) X10*3/uL Abs Immat Gran (auto) 0.04 H (0.00-0.03) X10*3/uL Absolute Neuts (auto) 7.3 (2.0-8.3) x10*3/uL Absolute Nucleated RBC 0.000 (0.0-0.012) X10*3/uL Nucleated RBC % (auto) 0.0 (0.0-0.2) /100WBC Sodium 139 (135-145) mmol/L Potassium 4.0 (3.3-5.1) mmol/L Chloride 107 (96-108) mmol/L Carbon Dioxide 25 (22-29) mmol/L Anion Gap 11 L (12-20) BUN 14 (9-16) mg/dL Creatinine 0.70 (0.5-1.4) mg/dL Estim Creat Clear Calc 136.1 Estimated GFR > 60 Random Glucose 94 (60-115) mg/dL Calcium 9.3 (8.4-10.2) mg/dL Total Bilirubin 0.3 (0.0-1.0) mg/dL Direct Bilirubin 0.1 (0.0-0.5) mg/dL AST 14 (5-31) U/L ALT 12 (0-31) U/L Alkaline Phosphatase 53 (39-117) U/L Total Protein 6.8 (6.5-8.0) g/dL Albumin 4.0 (3.5-5.0) g/dL Beta HCG, Quant < 2 mIU/mL Urine Color Yellow Urine Appearance Clear Urine pH 7.0 (5.0-9.0) Ur Specific [place] 1.015 (1.005-1.025) Urine Protein Negative (Neg-Trace) mg/dL Urine Glucose (UA) Negative (Negative) mg/dL Urine Ketones Negative (Negative) mg/dL Urine Blood Large (3+) H (Negative) Urine Nitrite Negative (Negative) Ur Leukocyte Esterase Trace H (Negative) Urine RBC 6-10 H (0-2) /HPF Urine WBC 0-5 (0-5) /HPF Ur Squamous Epith Cells 3-5 (0-2) /HPF Urine Bacteria None Seen (None Seen) Hyaline Casts 0-2 (0-2) /LPF Independent Interpretation I performed an independent interpretation of an: CT Scan Interpretation: My interpretation is in agreement with the radiologist's impression of this imaging study. EXAMINATION: CT LUMBAR SPINE WITHOUT CONTRAST CLINICAL INFORMATION: Low back pain. COMPARISON: None available. TECHNIQUE: Contiguous axial images through the lumbar spine using 2 mm collimation with bone and soft tissue algorithm. Sagittal and coronal reformatted images acquired. This CT examination was performed using dose optimization techniques as appropriate, variously including the following: *Automated exposure control *Adjustment of mA and/or kV according to patient size (this includes techniques or standardized protocols for targeted exams where dose is matched to indication/reason for exam; i.e. extremities or head) *Use of iterative reconstruction technique DLP; 612 mGy-cm FINDINGS: Patient's breathing motion artifact. Last rib-bearing vertebra labeled T12. No acute cortical disruption or gross malalignment in the included axial skeleton. There is normal alignment. No lytic or blastic lesions. No prevertebral compartment hematoma, fluid collections or gross mass. Sutures in the intestine. Status post cholecystectomy. No hydronephrosis or nephrolithiasis in either kidney. No aneurysm, abdominal aorta. Nonspecific prominent mesenteric and retroperitoneal lymph nodes. CT/CT lumbar spine wo IV con IMPRESSION: No acute fracture or trauma-related listhesis. Electronically signed by: Sal Mitchell MD 03/13/2024 12:40 PM [facility] Dictated By: Sal Hernández MD Signed By: Electronically signed by Sal Dozier MD 03/13/24 1240 Radiology Impression Discussion of test interpretation with radiology: I have reviewed the radiologist's reading. Critical Care Time Critical Care Time Critical Care Time: Yes Total Critical Care Time: 34 Attestation: I spent 34 minutes of Critical Care Time with this patient. This does not include time spent on separately reported billable procedures. Discharge Plan Discharge Clinical Impression: Low back pain Patient Disposition: Home, Self-Care Instructions: Acute Low Back Pain (ED) Additional Instructions: Follow up with your primary care provider. Return to the emergency department immediately if your symptoms worsen or if you develop any dizziness, shortness of breath, difficulty breathing, chest pain, blurry vision, loss of vision, nausea, vomiting, abdominal pain, fever, chills, back pain, or any other complaints. Prescriptions: New cyclobenzaprine 5 mg tablet 5 mg PO TID PRN (Reason: pain) 7 Days Qty: 21 0RF No Action ondansetron 4 mg tablet,disintegrating 4 mg PO Q6H PRN (Reason: nausea and vomiting) Qty: 20 0RF dicyclomine 20 mg tablet 20 mg PO TID Qty: 20 0RF metoclopramide HCl [Reglan] 10 mg tablet 10 mg PO Q6H PRN (Reason: nausea and vomiting) Qty: 20 0RF aripiprazole 10 mg tablet 10 mg PO DAILY hydrocortisone 2.5 % ointment 1 appl topical BID Qty: 20 0RF methylphenidate HCl 20 mg capsule,ER biphasic 50-50 20 mg PO QAM azithromycin 250 mg tablet See Rx Instructions PO .COMPLEX Qty: 6 0RF Rx Instructions: take 500 mg today (day 1), then 250 mg for 4 days (days 2-5) PO omeprazole 20 mg capsule,delayed release(DR/EC) 20 mg PO DAILY propranolol 10 mg tablet 10 mg PO BID valacyclovir 1 gram tablet 1,000 mg PO DAILY ondansetron HCl 4 mg tablet 4 mg PO Q6H PRN (Reason: nausea) Stelara 90 mg/mL syringe 90 mg subcut DIRECTED Referrals: Heri Nazario MD [Primary Care Provider] - Stand Alone Forms: Work/School Release Interventions: ED Discharge Assessment Last Done: 03/13/24 13:42 Discharge Date/Time: 03/13/24 13:50 Print Language: Portuguese
[2024-03-13 11:05] LABS: MANUAL DIFF FLAG NO
[2024-03-13 11:08] LABS: Basophils Absolute Auto 0.1 X10*3/uL (0.0-0.2); Basophils Percent Auto 0.7 % (0-2); Eosinophils Absolute Auto 0.5 X10*3/uL (0.0-0.4); Eosinophils Percent Auto 4.7 % (0-4); Hematocrit 47.4 % (37.0-47.0); Hemoglobin 15.6 g/dl (12.0-16.0); Imm Gran Abs Auto 0.04 X10*3/uL (0.00-0.03); Imm Gran Pct Auto 0.4 % (0.0-0.4); Lymphocytes Absolute Auto 2.3 X10*3/uL (1.2-4.9); Lymphocytes Percent Auto 21.1 % (20-40); Mean Corpuscular HGB Conc 32.9 g/dl (31.0-35.0); Mean Corpuscular Hemoglobin 28.6 pg (27.0-33.0); Mean Corpuscular Volume 86.8 fL (80.0-98.0); Monocytes Absolute Auto 0.6 X10*3/uL (0.1-1.2); Monocytes Percent Auto 5.5 % (2-11); Neutrophils Absolute Auto 7.3 x10*3/uL (2.0-8.3); Neutrophils Percent Auto 67.6 % (45-73); Platelet Count 386 X10*3/uL (160-400); Red Blood Count 5.46 X10*6/uL (4.20-5.50); Red Cell Distribution Width 12.7 % (11.0-16.0); White Blood Count 10.8 X10*3/uL (4.8-10.8)
[2024-03-13] MEDS: ondansetron HCL 4 MG/2 ML VIAL IVPUSH (11:35)
[2024-03-13] MEDS: Morphine Sulfate 4 MG/ML CARTRIDGE IVPUSH (11:35)
[2024-03-13] MEDS: diazePAM 10 MG/2 ML CARTRIDGE 2.5 MG IVPUSH (11:36)
[2024-03-13 12:00] VITALS: BP 134/88; PULSE 68; RESP 17; O2SAT 96
[2024-03-13 12:00] LABS: Alanine Aminotransferase 12 U/L (0-31); Alkaline Phosphatase 53 U/L (39-117); Anion Gap 11 (12-20); Aspartate Amino Transferase 14 U/L (5-31); Bilirubin Direct 0.1 mg/dL (0.0-0.5); Bilirubin Total 0.3 mg/dL (0.0-1.0); Blood Urea Nitrogen 14 mg/dL (9-16); Calcium 9.3 mg/dL (8.4-10.2); Carbon Dioxide 25 mmol/L (22-29); Chloride 107 mmol/L (96-108); Creatinine Clr Calc Pharmacy 136.1; Estimated Glomerular Filt Rate > 60; Glucose Random 94 mg/dL (60-115); Sodium 139 mmol/L (135-145); Total Protein 6.8 g/dL (6.5-8.0)
[2024-03-13 12:02] LABS: HCG Quantitative < 2 mIU/mL
[2024-03-13 12:21] LABS: Appearance Urine Clear; Color Urine Yellow; Glucose Urine UA Negative (Negative); Leukocyte Esterase Urine Trace (Negative); Nitrite Urine Negative (Negative); Specific Gravity - Urine 1.015 (1.005-1.025); UMIC TRIGGER UACC YES; Urine Blood Large (3+) (Negative); Urine Ketones Negative (Negative); Urine Protein Negative (Neg-Trace)
[2024-03-13 12:24] LABS: Bacteria Urine None Seen (None Seen); Hyaline Casts Urine 0-2 /LPF (0-2); WBC Urine 0-5 /HPF (0-5)
[2024-03-13 13:42] VITALS: BP 121/79; PULSE 72; RESP 18; TEMP 36.8; O2SAT 97
== END 2024-03-13 13:50 | disposition home or self-care (01) ==
PROVIDERS: Physician Assistant Medical; Emergency Provider Emergency Medicine; PCP Family Medicine
DX: M54.50 Low back pain, unspecified (principal); R10.2 Pelvic and perineal pain; Z79.899 Other long term (current) drug therapy
CPT/HCPCS: 36415; 72131; 80048; 80076; 81001; 84702; 85025; 96374; 96375; 99283; 99284; J2270; J2405; J3360

== ENCOUNTER → 2024-03-13 11:05 | Outpatient (BNV) | payer OTHER, SELFPAY | PROVIDERS: Emergency Provider Emergency Medicine; PCP Family Medicine; Visit Provider Radiology Diagnostic Radiology | DX: M54.50 Low back pain, unspecified (principal) | CPT/HCPCS: 72131 ==

== ENCOUNTER 2024-03-16 15:57 | Emergency (ER) | payer OTHER, SELFPAY ==
[2024-03-16 15:59] VITALS: BP 148/102; PULSE 88; RESP 20; TEMP 37.1; O2SAT 98; BMI 38.6
--- NOTE | 2024-03-16 16:01 | ED.GENADULT ---
HPI - General Adult General Chief complaint: Back Pain/Injury Stated complaint: back pain x 2 weeks Source: patient Mode of arrival: ambulatory Limitations: no limitations History of Present Illness ED Provider: Marsha Morfin PA-C HPI narrative: Patient is a 28 year old assigned female at with a history of Crohn's disease presenting to the emergency department today with continued low back pain. Patient states that she was seen here on 03/13/2024 for back pain x1 week and the pain continues. Patient states that she was feeling significantly better when she was here last time but the pain has come back and now radiates to the other side of the back. Patient denies any dizziness, lightheadedness, abdominal pain, nausea, vomiting, fever, chills, blurry vision, double vision, loss of vision, chest pain, difficulty breathing, shortness of breath, night sweats, pain with urination, increased urinary frequency, increased urinary urgency, blood in her urine or stool, syncope or a near syncopal episode, recent trauma or falls, bowel incontinence, bladder incontinence, or any other complaints at this time. Relieving factors: none Exacerbating factors: movement Associated symptoms: denies other symptoms Treatments prior to arrival: none Related Data Home Medications ?Medication ?Instructions ?Recorded ?Confirmed omeprazole 20 mg capsule,delayed 20 mg PO DAILY 03/08/20 11/04/20 release propranolol 10 mg tablet 10 mg PO BID 03/08/20 11/04/20 valacyclovir 1 gram tablet 1,000 mg PO DAILY 03/08/20 11/04/20 ondansetron HCl 4 mg tablet 4 mg PO Q6H PRN nausea 05/10/20 11/04/20 ustekinumab 90 mg/mL subcutaneous 90 mg subcut DIRECTED 05/10/20 11/04/20 syringe aripiprazole 10 mg tablet 10 mg PO DAILY 11/08/21 methylphenidate HCl 20 mg biphasic 20 mg PO QAM 08/15/22 50-50 capsule,extended release Previous Rx's ?Medication ?Instructions ?Recorded dicyclomine 20 mg tablet 20 mg PO TID #20 tabs 03/03/20 ondansetron 4 mg disintegrating 4 mg PO Q6H PRN nausea and 03/03/20 tablet vomiting #20 tabs metoclopramide HCl 10 mg tablet 10 mg PO Q6H PRN nausea and 05/12/21 (Reglan) vomiting #20 tabs hydrocortisone 2.5 % topical 1 appl topical BID #20 grams 11/08/21 ointment azithromycin 250 mg tablet See Rx Instructions PO .COMPLEX #6 08/15/22 tabs cyclobenzaprine 5 mg tablet 5 mg PO TID PRN pain 7 days #21 03/13/24 tabs Allergies Allergy/AdvReac Type Severity Reaction Status Date / Time amoxicillin [AMOXICILLIN] Allergy Intermediate CHRON'S Verified 03/16/24 16:04 FLARE UP, vomiting azathioprine [AZATHIOPRINE] Allergy Unknown PANCREATITI Verified 03/13/24 09:45 S heparin Allergy Rash Verified 03/13/24 09:45 Penicillins [PENICILLINS] AdvReac Unknown NAUSEA, Verified 03/13/24 09:45 CHRONS FLARE UP Review of Systems Constitutional: Constitutional: Reports no additional constitutional complaints, Denies chills, Denies fever(s) and Denies night sweats Eyes: Eyes: Reports no additional eye complaints, Denies blurry vision, Denies change in vision, Denies diplopia, Denies eye discharge, Denies loss of vision and Denies eye pain ENT: Denies dizziness Cardiovascular: Cardiovascular: Reports no additional cardiovascular complaints, Denies chest pain, Denies lightheadedness, Denies Loss of Consciousness and Denies dyspnea Respiratory: Respiratory: Reports no additional respiratory complaints and Denies dyspnea Gastrointestinal: Gastrointestinal: Reports no additional gastrointestinal complaints, Denies abdominal pain, Denies melena, Denies hematochezia, Denies change in bowel habits and Denies change in stool character Genitourinary: Genitourinary: Denies hematuria, Denies urinary frequency, Denies dysuria, Denies urinary incontinence, Denies urinary hesitancy and Denies urinary urgency Musculoskeletal: Musculoskeletal: Reports no additional musculoskeletal complaints, Reports back pain, Denies numbness and Denies tingling Neurologic: Denies dizziness, Denies loss of vision, Denies numbness and Denies tingling Psychiatric: Psychiatric: Reports no additional psychiatric complaints Endocrine: Endocrine: Reports no additional endocrine complaints Hematologic/Lymphatic: Hematologic/Lymphatic: Reports no additional hematologic/lymphatic complaints Allergic/Immunologic: Allergic/Immunologic: Reports no additional allergic/immunologic complaints PMFSH Past Medical History Attestation statement: The following information was validated with the patient. Source: old records reviewed and nursing notes reviewed Medical History Eating disorder Bipolar 1 disorder, depressed Acute Crohn's disease with intestinal obstruction Pelvic floor dysfunction Surgical History History of appendectomy History of bowel resection History of cholecystectomy Family History Family History Maternal Grandmother Brain cancer Paternal Grandmother Lung cancer Father Skin cancer Diabetes Heart disease Asthma Maternal Grandfather Diabetes Maternal Grandmother Diabetes Paternal Grandfather Diabetes Paternal Grandmother Diabetes Mother Heart disease Social History Social History Alcohol intake: never Patient Tobacco Use Status: Never used Tobacco Substance Use Type: Marijuana Advance Directives: No Advance Directives Information Provided: No Sexual orientation: Straight/Heterosexual Gender identity: Female Physical Exam ED Vital Signs: Vital Signs - 24 hr 03/16/24 15:59 03/16/24 17:08 Temperature 98.7 F Pulse Rate 88 73 Respiratory Rate 20 18 Blood Pressure 148/102 H 106/66 Pulse Oximetry 98 97 Oxygen Delivery Method Room Air Room Air BMI result Body Mass Index 38.6 Const General: cooperative, no acute distress, alert and awake Nutritional Appearance: well nourished Orientation/consciousness: patient oriented x3 Limitations: no limitations HENMT Head: Yes normal to inspection and Yes atraumatic Ears: hearing grossly normal bilaterally and external ears normal General nose exam: Normal external nose present, no nasal discharge noted and no epistaxis Face and sinus: Yes normal facial exam, No abrasion and No laceration Mouth: Normal oral and palatal mucosa present, no drooling and no muffled voice Eyes General: appearance normal, both eyes and all related structures Periorbital: periorbital findings normal Eyelids: Yes eyelids normal Conjunctivae: conjunctivae normal Pupils: Equal, round and reactive pupils present EOM: EOMs intact bilaterally Neck Neck: Yes normal visual inspection, Yes full ROM and Yes no lymphadenopathy Chest Chest palpation & inspection: normal inspection of the chest Resp Effort & Inspection: normal respiratory effort and able to speak in complete sentences GI Inspection: Yes normal to inspection General: Yes no CVA tenderness Back/Spine/Pelvis Other: pain with lumbar and thoracic spine movement Back: no CVA tenderness Cervical Spine: normal cervical lordosis and cervical ROM normal Neuro General: patient oriented x3 and moves all extremities Cranial nerves: Yes Equal, round and reactive pupils present Cognition (Neuro): normal cognition Extrem General: Yes normal to inspection, Yes full ROM and Yes capillary refill normal Psych Appearance: grossly normal Mental Status: mental status grossly normal Affect: normal affect Attitude: cooperative Thought process: Normal thought process present Thought content: Normal thought content present Insight: Good insight present (Psych) Course Course Course Narrative: RME performed by Marsha Morfin PA-C. Patient is a 28 year old assigned female at presenting to the emergency department with continued low back pain. Patient states over the last few weeks she has had worsening low back pain that is not relieved with the muscle relaxers she was prescribed. Detailed physical exam and review of systems are deferred to the chicken buyer. Patient placed back in the waiting room pending room availability. Medications Administered Discontinued Medications Generic Name Dose Route Start Last Admin Trade Name Freq PRN Reason Stop Dose Admin Ketorolac Tromethamine 15 mg 03/16/24 17:04 03/16/24 17:11 Ketorolac Tromethamine 15 Mg/Ml Vial IM 03/16/24 17:05 15 mg ONCE ONE Administration Medical Decision Making Medical Decision Making MDM Narrative: Patient is a 28 year old assigned female at with a history of Crohn's presenting to the emergency department today with continued low back pain. Patient's limited physical exam performed in triage was as noted in the physical exam portion of this note. Patient left the department without completing treatment. Patient left the department before myself or any of the other emergency department clinicians could explain to or review with the patient; physical exam findings, need or lack there of for additional testing, need or lack there of for a procedure to be performed, need or lack there of for hospital admission / transfer, need or lack there of for prescription medication, treatment options, or a treatment plan. Differential Diagnosis Differential Diagnoses: The differential diagnosis associated with the presentation includes Low back pain Admission/Observation Consideration of admission/observation: Escalation of care including admission/observation considered Patient would have been admitted to the hospital had she completed her work up and it had any findings where hospital admission was appropriate, her clinical presentation warranted hospital admission, had myself or any other emergency department store manager had the ability to discuss need or lack there of for hospital admission, and the patient hadn't left the department without completing treatment. Discharge Plan Discharge Clinical Impression: Low back pain Patient Disposition: Left W/O Completing Treatment Prescriptions: No Action ondansetron 4 mg tablet,disintegrating 4 mg PO Q6H PRN (Reason: nausea and vomiting) Qty: 20 0RF dicyclomine 20 mg tablet 20 mg PO TID Qty: 20 0RF metoclopramide HCl [Reglan] 10 mg tablet 10 mg PO Q6H PRN (Reason: nausea and vomiting) Qty: 20 0RF cyclobenzaprine 5 mg tablet 5 mg PO TID PRN (Reason: pain) 7 Days Qty: 21 0RF aripiprazole 10 mg tablet 10 mg PO DAILY hydrocortisone 2.5 % ointment 1 appl topical BID Qty: 20 0RF methylphenidate HCl 20 mg capsule,ER biphasic 50-50 20 mg PO QAM azithromycin 250 mg tablet See Rx Instructions PO .COMPLEX Qty: 6 0RF Rx Instructions: take 500 mg today (day 1), then 250 mg for 4 days (days 2-5) PO omeprazole 20 mg capsule,delayed release(DR/EC) 20 mg PO DAILY propranolol 10 mg tablet 10 mg PO BID valacyclovir 1 gram tablet 1,000 mg PO DAILY ondansetron HCl 4 mg tablet 4 mg PO Q6H PRN (Reason: nausea) Stelara 90 mg/mL syringe 90 mg subcut DIRECTED Discharge Date/Time: 03/16/24 18:07
[2024-03-16 17:08] VITALS: BP 106/66; PULSE 73; RESP 18; O2SAT 97
[2024-03-16] MEDS: Ketorolac Tromethamine 15 MG/ML VIAL IM (17:11)
--- NOTE | 2024-03-16 18:03 | PC.NURSE ---
Addendum entered by Radha Brunson 03/16/24 18:05: Pt didn't want to wait in the closet anymore. PT was referring to RP room. Original Note: pt crying said she couldn't sit any longer and didn't want to wait in the closet anymore.
== END 2024-03-16 18:07 | disposition left against medical advice (07) ==
PROVIDERS: Emergency Provider Emergency Medicine; PCP Family Medicine
DX: M54.50 Low back pain, unspecified (principal); Z79.899 Other long term (current) drug therapy
CPT/HCPCS: 96372; 99283; 99284; J1885

== ENCOUNTER 2024-12-30 09:15 | Outpatient (REF) | payer OTHER, SELFPAY ==
--- OUTSIDE RECORDS SUMMARY | 2024-03-24 10:30 | XMS_ITS ---
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 * Medical History: Objective: * Vitals: Assessment: Plan: * Treatment: * Images: Billing Information: * Visit Code: * Procedure Codes: * Electronic signature of DHRUV PADILLA MD on 12/30/2024 at 09:41 AM EDT Sign off status: Pending * Provider: Clif PADILLA MD Date: 05/24/2023 Generated for Printi ng/Faxing/eTransmitting on: 0 12/30/2024 09:41 AM EDT
--- OUTSIDE RECORDS SUMMARY | 2024-10-17 09:20 | XMS_ITS ---
Author Organization [facility] Address [address] [place] [address] Care Team Providers Care Cattle Driver Name Role Phone Aravind (RETIRED) Heri REINOSO Primary Care Provider Unavailable Channing Shabazz Unavailable [phone] JA MAGALLANES Unavailable Unavailable REASON FOR VISIT crohn's Encounters Encounter Location Date Provider Diagnosis [facility] [address] [place] [address] 10/17/2024 Channing Shabazz Plan Of Treatment Next Appt Details Provider Name:Channing Shabazz , 02/11/2025 01:40:00 PM, [address] [facility], [address], [place], [address], Progress Notes * GOPI LUKE MDOB:1995 (29 yo F)Acc No.[id number]:10/17/2024 Progress Notes Patient: Clif CHARLESGOPI ROTHMAN Provider: Brando Shabazz MD :1995 A ge:28 Y S ex:Female Date:10/17/2024 Address:[address] [place] [address] Pcp:Heri Nazario (RETIRED) MD Subjective: * Chief Complaints: * 1 . Crohn's. * Medical History: Objective: * Vitals: Assessment: Plan: * Treatment: * * The named appointment provid er may or may not be the originator of this progress note, and it is not deemed complete until electronically signed by the appointment provider. Sign off status: Pending * Provider: Brando Shabazz MD Date: 0 10/17/2024 Generated for Courtney trivedi/Shanti/Kellie on: 0 12/30/2024 09:41 AM EDT
--- OUTSIDE RECORDS SUMMARY | 2024-10-28 06:30 | XMS_ITS ---
Author Organization [facility] Address [address] [place] [address] Care Team Providers Care Business Process Lead Name Role Phone Aravind (RETIRED) Heri REINOSO Primary Care Provider Unavailable Channing Shabazz Unavailable [phone] JA MAGALLANES Unavailable Unavailable REASON FOR VISIT crohn's Encounters Encounter Location Date Provider Diagnosis [facility] [address] [place] [address] 10/28/2024 Channing Shabazz Plan Of Treatment Next Appt Details Provider Name:Channing Shabazz , 02/11/2025 01:40:00 PM, [address] [facility], [address], [place], [address], Progress Notes * GOPI LUKE MDOB:1995 (29 yo F)Acc No.[id number]:10/28/2024 Progress Notes Patient: Clif CHARLESGOIP ROTHMAN Provider: Brando Shabazz MD :1995 A ge:28 Y S ex:Female Date:10/28/2024 Address:[address] [place] [address] Pcp:Heri Nazario (RETIRED) MD Subjective: * Chief [...] * Provider: Brando Shabazz MD Date: 0 10/28/2024 Generated for Courtney trivedi/Shanti/Kellie on: 0 12/30/2024 09:41 AM EDT
--- OUTSIDE RECORDS SUMMARY | 2024-12-30 09:41 | XMS_ITS | Clinical Summary ---
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 Not on anitha e 08/31/2022 Are you concerned about learning? Not on file 08/31/2022 No 08/31/2022 No 08/31/2022 Digital Access Answer Date Recorded No 10/02/2022 No 10/02/2022 Reliable internet access at home? Not on file 10/02/2022 Device with a working camera? Not on file Intimate Partner Violence Answer Date R ecorded Are you denied basic needs s uch as food, clothing, or medical care? No 03/16/2024 In the past 12 months have y ou been in a relationship with a person who hurts, threatens, or tries to control you? No 03/16/2024 Are you denied basic needs s uch as food, clothing, or medical care? No 03/16/2024 In the past 12 months have y ou been in a relationship with a person who hurts, threatens, or tries to control you? No 03/16/2024 Comments Unknown Sex and Gender Information Value Date Recorded Sex Assigned at Female 07/15/2019 5:01 PM EDT Legal Sex Female 7:45 PM EST Gender Identity Female 07/15/2019 5:01 PM EDT Sexual Orientation Bisexual 02/05/2020 10 :56 AM EDT Last Filed Vital Signs Vital Sign Reading Time Taken Comments Blood Pressure 121/83 03/16/2024 7:12 PM EST Pulse 88 03/16/2024 7:12 PM EST Temperature 36 C (96.8 F) 03/16/2024 7:12 PM EST Respiratory Rate 18 03/16/2024 7:12 PM EST Oxygen Saturation 99% 03/16/2024 7:12 PM EST Inhaled Oxygen Concentration - - Weight 68 kg (150 lb) 07/15/2019 4:57 PM EDT Height 162.6 cm (5' 4 ) 07/15/2019 4:57 PM EDT Body Mass Index 25.75 07/15/2019 4:57 PM EDT Plan of Treatment Health Maintenance Due Date Last Done Comments DEPRESSION SCREENING 2005 HIV ONE-TIME SCREENING (18-6 5 YEARS) 11/12/2011 PAP SMEAR 2014 Adult Td,Tdap Booster 03/08/2017 03/08/2007 COLOGUARD 01/17/2022 COLONOSCOPY 01/17/2022 COLORECTAL CANCER SCREENING 01/17/2022 FIT TEST 01/17/2022 FOBT 01/17/2022 SIGMOIDOSCOPY 01/17/2022 VIRTUAL COLONOSCOPY 01/17/2022 COVID-19 VACCINE (3 - 2023-2 5 season) 2024 09/30/2020, 09/08/2020 HEPATITIS C SCREENING Completed 04/14/2021 SMOKING STATUS SCREENING (On ce After 26 Yrs) Completed 03/16/2024 HEPATITIS A VACCINES Aged Out No long er eligible based on patient's age to complete this topic HIB VACCINES Aged Out No longer eligi ble based on patient's age to complete this topic MENINGOCOCCAL VACCINES (ACWY) Aged Out No longer eligible based on patient's age to complete this topic MENINGOCOCCAL VACCINES (B) Aged Out N o longer eligible based on patient's age to complete this topic PNEUMOCOCCAL VACCINES (0-49 years) Aged Out No longer eligible b ased on patient's age to complete this topic Medical Devices Not on file Insurance [facility] [place] [id number] [employer] ONE CARE MEDICARE REPLACEMENT [facility] MEDICARE REPLACEMENT [facility] MEDIC[facility] REPLACEMENT [facility] [place] [id number] [facility] ONE CARE MEDICARE REPLACEMENT Care Teams Fish Trapper Relationship Specialty Start Date End Date Heri Nazario MD [address] [place] [address] [place] [address] PCP - General Internal Medicine 02/05/20 Additional Source Comments The information contained in this document represents components of the legal health record. It is not the complete legal health record.[facility]
--- OUTSIDE RECORDS SUMMARY | 2024-12-30 09:41 | XMS_ITS | Encounter Summary ---
Author Organization [facility] Address [address] [place] [address] Care Team Providers Care Corncob Pipe Manufacturing Supervisor Name Role Phone Heri Nazario Primary Care Provider [phone] Encounter Details Date Type Department Care Team (Late st Contact Info) Description 05/27/2021 Documentation [facility] [address] [place] [address] Aliza Villagran, MALISSA [address] [place] [address] Social History Tobacco Use Types Packs/Day Years Used Date Smoking Tobacco: Never Smokeless Tobacco: Never Alcohol Use Standard Drinks/Week Comments Not Currently 0 (1 standard drink = 0.6 oz pur e alcohol) Comments Yes Sex and Gender Information Value Date Recorded Sex Assigned at Female 03/28/2021 6:09 AM EST Legal Sex Female 9:40 AM EDT Gender Identity Female 03/28/2021 6:09 AM EST Sexual Orientation Bisexual 03/28/2021 6: 09 AM EST documented as of this encounter Plan of Treatment Not on file documented as of this encounter Visit Diagnoses Not on filedocumented in this encounter Additional Health Concerns Infection Onset Date Last Indicated Resolved Time COVID-19 - Confirmed infection 05/24/2021 05/24/2021 07/05/2021 11:32 AM EST documented as of this encounter Care Teams Corncob Pipe Manufacturing Supervisor Relationship Specialty Start Date End Date Heri Nazario [address] [place] [address] [place] [address] PCP - General Internal Medicine 02/28/21 documented as of this encounter
--- OUTSIDE RECORDS SUMMARY | 2024-12-30 09:41 | XMS_ITS | Patient Health Record ---
Author Organization [email or web address] [facility] Address [address] [place] [address] Care Team Providers Care Director Cardiac Name Role Phone VICTORIANO WATSON Primary Care Provider DHRUV Benitez Unavailable [phone] Allergies Allergen (clinical drug ingredient) Drug/Non Drug Allergy documented on EMR Reaction Allergy Type Onset Date Status azathioprine Azathioprine pancreatitis Drug Allergy Active Humira placque psoriasi s that resolved when med stopped Drug Allergy Active Reason For Referral No Information Medications Medication SIG (Take, Route, Frequency, Duration) Notes Start Date End Date Status Albuterol Sulfate HFA 108 (90 Base) MCG/ACT INHALE 2 PUFFS EVERY FOUR HOURS NEEDED FOR SHORTNESS OF BREATH OR WHEEZING Inhalation; Duration: 25 Not-Taking Propranolol HCl 20 MG TAKE ONE TABLET BY MOUTH TWICE A DAY NEEDED FOR ANXIETY OR INSOMNIA Oral; Duration: 30 Not-Taking Melatonin [address] 1-2 TABLETS UNDER THE TONGUE AT BEDTIME Sublingual; Duration: 30 Not-Taking Banophen 25 MG TAKE 1-2 TABLETS AT BEDTIME Oral; Duration: 30 Not-Taking Vitamin 27-0.8 MG 1 tablet Orally Once a day; Duration: 30 day(s) Active Ritalin 5 MG 1 tablet on an empty stomach Orally Twice a day Active ARIPiprazole 10 MG 1 tablet Orally Once a day; Duration: 30 day(s) 03/20/2023 Not-Taking Omeprazole 20 MG Orally Not -Taking Abilify 15 MG 1 tablet Once a day Active Stelara 90 MG/ML INJECT ONE SYRINGE (90mg) SUBCUTANEOUSLY EVERY FOUR WEEKS Subcutaneous; Duration: 28 [id number],Unava ilable Active Social History Tobacco Use: Social History Observation Description Date Details (start date - stop date) Never Smoker NA - NA Tobacco Use/Smoking Question Answer Notes Are you a nonsmoker Alcohol Screen (Audit-C) Question Answer Notes Did you have a drink containing alcohol in the p ast year? No Points 0 Interpretation Negative Tobacco use other than smoking: Question Answer Notes Are you an other tobacco user? No Problems Problem Type SNOMED Code ICD Code Onset Dates Problem Status W/U Status Risk Notes Problem Bipolar II disorder (55427035) Bipolar II disorder (F31.81) Active confirmed Problem Urinary incontinence (502601271) Other specified urinary incontinence (N39.498) Active confirmed Problem Amenorrhea (63404559) Amenorrhea, unspecified (N91.2) Active confirmed Problem Postcoital bleeding (87499036) Postcoital and contact bleeding (N93.0) Active confirmed Problem Abnormal uterine bleeding (99326067686870) Abnormal uterine and vaginal bleeding, unspecified (N93.9) Active confirmed Problem SI - Stress incontinence (04132213) Stress incontinence (female) (male) (N39.3) Active confirmed Problem Deep dyspareunia (315450340) Deep dyspareunia (N94.12) Active confirmed Problem COVID-19 (915036429) COVID-19 (U07.1) Active confirmed Plan Of Treatment Pending Test Test Name Order Date Sonohysterogram 07/04/2019 Test, Urine 06/05/2019 Test, Urine 06/04/2023 Test, Urine 06/11/2023 Urinalysis 06/05/2019 Ultrasound : Sono Hystergram 06/05/2019 URINE CULTURE AND SENSITIVITY 07/04/2019 FSH 06/05/2019 TSH WITH REFLEX TO FT4 06/05/2019 PROLACTIN WITH REFLEX TO MONOMERIC 06/05 Insurance Providers Payer Name Payer Address Payer Phone Subscriber Number Group Number Insured Name Patient Relationship to Insured Coverage Start Date Coverage End Date [facility] [address] [place] [id number] [id number] LUKE Self - patient is the insured Medical (General) History Medical History History ICD Code Mental and behavioral problems V40 Headache R51 Disease of gallbladder, unspecified K82. 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 intestinal blockages 2018 Pancreatitis 2017 stomach blockage 2012 Bowel resection 08/2011 Bowel Resection 1993
--- OUTSIDE RECORDS SUMMARY | 2024-12-30 09:42 | XMS_ITS | Clinical Summary ---
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 vitamin ( PLUS) 27 mg iron- 1 mg tablet Take 1 tablet by mouth once a day. Active ustekinumab (Stelara) 90 mg/mL injection Inject 90 mg under the skin. Pt administers Stelara every 8 wks. Active omeprazole (PriLOSEC) 20 mg capsule Take 20 mg by mouth once. Active breast pump deviceIndicatio ns:Lactating mother (HCC) 1 each as needed (feeding). 1 each 2 Active ARIPiprazole (ABILIFY) 10 mg tablet Take 1 tablet (10 mg total) by mouth once a day. 30 tablet 3 2 Active Active Problems Problem Noted Date Diagnosed Date with 39 completed weeks gestation 10/05 Encounter for induction of labor 10/13/2021 COVID-19 affecting in second trimester 07/05/2021 Crohn's disease 05/01/2021 Mood disorder 04/12/2021 Abdominal pain affecting Abdominal trauma Resolved Problems Problem Noted Date Diagnosed Date Resolved Date Abdominal trauma, initial encounter 09/30/2021 10/01/2021 Supervision of high risk pre gnancy in third trimester 05/01/2021 10/15/2021 Anorexia nervosa 04/05/2021 04/05/2021 Decreased movements in second trimester 08/15/2021 Immunizations Immunization Administration Dates Next Due Influenza, Injectable, Quadr ivalent, Preservative Free 03/28/2021 Rho (D) Immune Globulin - IM 10/16/2021,10/02/19,07/25/2021 Tetanus Toxoid, Reduced Diph theria Toxoid, and Acellular Pertussis Vaccine, Adsorbed 07/25/2021 Family History Medical History Relation Name Comments Diabetes Father Heart disease Father Cancer Maternal Grandfather Bipolar disorder Maternal Grandmother Hypertension Mother Relation Name Status Comments Father Alive Maternal Grandfather Maternal Grandmother Mother Alive Social History Tobacco Use Types Packs/Day Years Used Date Smoking Tobacco: Never Smokeless Tobacco: Never Alcohol Use Standard Drinks/Week Comments Not Currently 0 (1 standard drink = 0.6 oz pur e alcohol) Comments No Sex and Gender Information Value Date Recorded Sex Assigned at Female 03/28/2021 6:09 AM EST Legal Sex Female 9:40 AM EDT Gender Identity Female 03/28/2021 6:09 AM EST Sexual Orientation Bisexual 03/28/2021 6: 09 AM EST Last Filed Vital Signs Vital Sign Reading Time Taken Comments Blood Pressure 125/85 10/17/2021 4:34 AM EDT Pulse 86 10/17/2021 4:34 AM EDT Temperature 36.6 C (97.9 F) 10/17/2021 4:34 AM EDT Respiratory Rate 20 10/17/2021 4:34 AM EDT Oxygen Saturation 98% 10/17/2021 4:34 AM EDT Inhaled Oxygen Concentration - - Weight 116.1 kg (256 lb) 10/13/2021 5:32 PM EDT Height 162.6 cm (5' 4 ) 09/30/2021 4:26 PM EDT Body Mass Index 43.94 09/30/2021 4:26 PM EDT Plan of Treatment Health Maintenance Due Date Last Done Comments COVID-19 Vaccine ( season) 2024 07/09/2021, 09/30/2020, 09/08/2020 Alcohol/Substance Use Screening 05/07/2024 Influenza Vaccine (#1) 2025 , 02/28/2018, 04/09/2012, Additional history exists DTaP,Tdap,and Td Vaccines (8 - Td or Tdap) 07/26/2031 07/25/2021, 03/08/2007, 01/12/2005, Additional history exists RSV Vaccine (60+ years old and patients) (1 - 1-dose 75+ series) 2068 Hepatitis B Vaccines Completed 03/15/2001, 05/24/1994, 01/04/1994, Additional history exists Pneumococcal Vaccine: Pediatric (0-5 Years) and At-Risk Patients (6-50 Years) Aged Out 07/11/2012 No longer eligible based on patient's age to complete this topic Varicella Vaccines Completed 11/12/2018, 1 06/08/2007, 12/29/1997 Cervical Cancer Screening Discontinued Pap Smear Discontinued 03/28/2021 HIV Screening Completed 04/14/2021 HPV and Pap Smear Discontinued Procedures * Due to [place] [employer] law, this organization might not be sharing negative HIV tests. Procedure Name Priority Date/Time Associated Diagnosis Comments PAP Routine 03/28/2021 8:19 AM EST Cervical cancer screening from Last 3 Months or Most Recently Relevant to Health Maintenance Results * Due to [place] [employer] law, this organization might not be sharing negative HIV tests. * Pap (03/28/2021 8:19 AM EST) Specimen Adequacy Satisfactory for evaluation, endocervical/orourke sformation zone component absent [facility] MANUAL 1 2:38 PM EST [facility] Pathologist Cytology Interpretation Negative for intraepithelial lesion or malignancy. [facility] MANUAL 1 2:38 PM EST [facility] at 1438 EST Comment:This is the result o f a morphological screening test with an inherent possibility of a false negative interpretation. Conformal Pad Former Statement This Pap test was examined by the [facility], [employer], [place], [place]. This Pap test was examined in accordance with the [facility] Cytopathology Laboratory written policy, which incorporates all CLIA mandates. Current screening guidelines can be found in [place]: A Cancer Journal for Clinicians 2020;70:321-346. Current [facility] management guidelines for abnormal Pap tests are published in the Journal Lower Genital Tract Disease Volume 2020;24:102-131. [facility] MANUAL 1 2:38 PM EST [facility] Clinical History screening pap [facility] MANUAL 1 2:38 PM EST [facility] Resulting Agency Case was signed out at [facility], Department of Pathology, [employer] 3 CLIA [id number] [facility] MANUAL 1 2:38 PM EST [facility] Report Header Gynecologic Cytology Report Case: [id number] Authorizing Provider: Collins Rogers DO Collected: 03/28/2021 0819 Ordering Location: [facility] Received: 03/28/2021 [facility] Obstetrics and Gynecology First Screen: Shannon Russo Specimen: Screening ThinPrep Pap, Cervix/Endocervix 1 2:38 PM EST [facility] Brushing Cervix uteri structure / Unknown Non-Blood Collection / Unknown 03/28/2021 8:19 AM EST 03/28/2021 11:06 AM EST us Collins Rogers DO LAB PATHOLOGY/CYTOLOGY ORDERA BLES Final Result [email or web address] [address] [place] [address], from Last 3 Months or Most Recently Relevant to Health Maintenance Insurance MEDICARE [facility] [id number] Advance Directives Documents on File Type Date Recorded Patient Knowledge Architect Expl [facility] Care Proxy 10/14/2021 7:34 AM No Si gnature Date * Full Code (Latest Code Status on File) Date Activated Date Inactivated Comments 10/15/2021 5:13 PM 10/17/2021 2:47 PM Care Teams Ice Cream Chef Relationship Specialty Start Date End Date Heri Nazario [address] [place] [address] [place] [address] PCP - General Internal Medicine 02/28/21
--- OUTSIDE RECORDS SUMMARY | 2024-12-30 09:42 | XMS_ITS | Encounter Summary ---
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 Name Role Phone Heri Nazario Primary Care Provider [phone] Encounter Details Date Type Department Care Team (Late st Contact Info) Description 10/17/2021 [employer] [facility] - Second Floor [address] [place] [address] Mychart, Generic Provider [address] [place], [place] [id number] Post appt Social History Tobacco Use Types Packs/Day Years [...] Diagnoses Not on filedocumented in this encounter Care Teams Waterworks 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
--- OUTSIDE RECORDS SUMMARY | 2024-12-30 09:42 | XMS_ITS | Patient Health Record ---
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 Pilot Name Role Phone Aravind (RETIRED) Heri REINOSO Primary Care Provider Unavailable Channing Shabazz Unavailable [phone] JA MAGALLANES Unavailable Unavailable Allergies Allergen (clinical drug ingredient) Drug/Non Drug Allergy documented on EMR Reaction Allergy Type Onset Date Status azathioprine Azathioprine Unknown Drug Allergy A ctive heparin Heparin hives Drug Allergy Active amoxicillin Amoxicillin Unknown Drug Allergy Act fazal Reason For Referral No Information Medications Medication SIG (Take, Route, Frequency, Duration) Notes Start Date End Date Status Stelara 90 MG/ML One Injection Subcutaneous Every 4 weeks as of 01/2023 Started 11/201801/14/2019 Active Ondansetron HCl Acti ve Dicyclomine HCl 10 MG 1 or 2 capsules Orally Every 4-6 hours as needed for abdominal pain/cramps/discomf ort for 30 day(s) Active Albuterol Sulfate HFA 108 (90 Base) MCG/ACT INHALE 2 PUFFS EVERY FOUR HOURS NEEDED FOR SHORTNESS OF BREATH OR WHEEZING Inhalation for 25 Active Colace 100 MG 1 capsule as needed Orally QOD Active Budesonide 3 MG 3 Orally Once a day for 30 day(s) 11/30/2022 Active Omeprazole 20 MG TAKE 1 CAPSULE BY MOUTH EVERY DAY for 30 Active ARIPiprazole 10 MG 1 tablet Orally Once a day Active Cyclobenzaprine HCl 5 MG Oral for 7 Active MiraLax - as directed Orally Use daily Active Methylphenidate HCl 5 MG Oral for 30 Active Promethazine HCl 12.5 MG 1 tablet Orally every 6 hrs prn nausea for 30 Not-Taking Budesonide-Formoterol Fumarate 160-4.5 MCG/ACT INHALE 2 PUFFS USING INHALER TWO TIMES A DAY DIRECTED Inhalation for 30 Active Ondansetron 4 MG 1 tablet on the tongue and allow to dissolve Orally Every 4 to 6 hours for nausea. You can try taking it before a meal to prevent nausea as well for 30 day(s) 07/07/2022 Active Methylphenidate HCl ER (LA) 20 MG TAKE ONE CAPSULE BY MOUTH EVERY MORNING Oral for 30 Active Cholestyramine 4 GM/DOSE use 05/10 to 1/2 of a scoop in 8 ounces of water or orange juice Orally Once or Twice a day as needed to help with diarrhea for 30 day(s) 03/19/2024 Active Propranolol HCl 20 MG Oral for 30 Active Immunizations Vaccine Route Administration Date Status Comme nts Influenza Unknown 02/19/2018 Administered Influenza Unknown 02/04/2019 Administered Influenza Unknown 03/19/2024 Refused Social History Alcohol Screen Question Answer Notes Did you have a drink containing alcohol in the p ast year? No Points 0 Interpretation Negative Section Notes: Occasional pot brownie- helps when stomach hurts and no appitite Nonsmoker; no sig alcohol Occasional pot brownie or gummy chew- helps when stomach hurts and no appitite/ has medical marijuana card Nonsmoker; no sig alcohol Occasional pot brownie or gummy chew- helps when stomach hurts and no appitite/ has medical marijuana card Nonsmoker; no sig alcohol Occasional pot brownie or gummy chew- helps when stomach hurts and no appitite/ has medical marijuana card Smokes marijuana; no sig alcohol Occasional pot brownie or gummy chew- helps when stomach hurts and no appitite/ has medical marijuana card Smokes marijuana; no sig alcohol Occasional pot brownie or gummy chew- helps when stomach hurts and no appitite/ has medical marijuana card Smokes marijuana; no sig alcohol Occasional pot brownie or gummy chew- helps when stomach hurts and no appitite/ has medical marijuana card Smokes marijuana; no sig alcohol Occasional pot brownie or gummy chew- helps when stomach hurts and no appitite/ has medical marijuana card Smokes marijuana; no sig alcohol Occasional pot brownie or gummy chew- helps when stomach hurts and no appitite/ has medical marijuana card Smokes marijuana; no sig alcohol Occasional pot brownie or gummy chew- helps when stomach hurts and no appitite/ has medical marijuana card Smokes marijuana--helps with GI/ symptoms and her apetitie; no sig alcohol Occasional pot brownie or gummy chew- helps when stomach hurts and no appitite/ has medical marijuana card Smokes marijuana--helps with GI/ symptoms and her apetitie; no sig alcohol Uses CBD as well Nonsmoker, no sig alcohol Nonsmoker, no sig alcohol Marijuana edibles or smoking Nonsmoker, no sig alcohol Marijuana edibles or smoking Problems Problem Type SNOMED Code ICD Code Onset Dates Problem Status W/U Status Risk Notes Problem Epigastric pain (05826007) Epigastric abdominal pain (R10.13) Active confirmed Problem 53975187 Crohn's disease of both small and large intestine without complication (K50.80) Active confirmed Problem 97856121 Crohn's disease of small intestine with intestinal obstruction (K50.012) Active confirmed Problem 43386277 Crohns disease o f both small and large intestine with intestinal obstruction (K50.812) Active confirmed Problem Crohn (36715106) Crohn's disease of both small and large intestine with unspecified complications (K50.819) Active confirmed Problem 469089271 Generalized abdominal pain (R10.84) Active confirmed Problem 153767212 Nausea (R11.0) Active confirmed Problem 98639582 Anorexia (R63.0) Active confirmed Problem Early satiety (014163723) Early satiety (R68.81) Active confirmed Problem 640553735 Encounter for therapeutic drug level monitoring (Z51.81) Active confirmed Problem 47627890 Abdominal pain, epigastric (R10.13) Active confirmed Problem 19062799 Crohns disease o f small intestine with intestinal obstruction (K50.012) Active confirmed Problem 815980637 Abdominal pain, periumbilical (R10.33) Active confirmed Problem 84725172 Crohns disease o f both small and large intestine with intestinal obstruction (K50.812) Active confirmed Problem 196045163 Iron deficiency anemia due to chronic blood loss (D50.0) Active confirmed Problem 360062097 Gallstones (K80.20) Active confirmed Problem 893755302 B12 deficiency (E53.8) Active confirmed Problem 56394085 Crohns disease o f small intestine without complication (K50.00) Active confirmed Problem 346964633 Microcytic anemi a (D50.9) Active confirmed Problem 138415012 Anemia, unspecified type (D64.9) Active confirmed Problem 89826757 Crohn's disease of small intestine without complication (K50.00) Active confirmed Problem 805519791 Abdominal pain, generalized (R10.84) Active confirmed Problem 63599749 Diarrhea, unspecified type (R19.7) Active confirmed Problem 99702213 Irritable bowel syndrome with both constipation and diarrhea (K58.2) Active confirmed Problem Acute pancreatitis (437942860) Acute biliary pancreatitis without infection or necrosis (K85.10) Active confirmed Problem 41016262 Crohn's disease of both small and large intestine with intestinal obstruction (K50.812) Active confirmed Problem 99135922 Diarrhea of presumed infectious origin (R19.7) Active confirmed Problem 79401692 Crohn''s disease of small intestine with intestinal obstruction (K50.012) Active confirmed Vital Signs Temperature 96.6 degrees Fahrenheit 03/19/2024 Blood pressure diastolic 00 mm Hg 03/19/2024 Height 64.5 in 03/19/2024 Blood pressure systolic 000 mm Hg 03/19/2024 Weight 223 lb 4 oz lbs 03/19/2024 BMI 37.72 kg/m2 03/19/2024 Encounters Encounter Location Date Provider Diagnosis [facility] [address] [place] [phone] 03/19/2024 Channing Shabazz Crohns disease of radha th small and large intestine with intestinal obstruction K50.812 and Diarrhea, unspecified type R19.7 [facility] [address] [place] [id number] 01/03/2024 Channnig Shabazz [facility] [address] [place] [phone] 05/30/2024 hCanning Shabazz [facility] [address] [place] [phone] 08/05/2024 Channing Shabazz Assessments Encounter Date Diagnosis (ICD Code) Assessment Notes Treatment Notes Treatment Clinical Notes Section Notes 03/19/2024 Crohns disease of both small and large intestine with intestinal obstruction (ICD-10 - K50.812) Continue the Stelara every 4 weeks. Stay on Low residue and low roughage diet Need surgery records from 11/[address] Linette Clancy Overall, Gopi appears quite well. She appears to have tolerated the surgery without any difficulties. I did have her sign a release today so I can obtain the actual records to see exactly what was done as far as lysis of adhesions and any surgery on a stricture or removal of small intestine. She continues to tolerate the Stelara without any complications and I did advise her to continue the every four-week regimen.I will give her a lab order to check a Stelara trough level next week prior to her next injection. Given the recent labs from the ER earlier this month that were all normal, I don't think we need to repeat any other labs at this time. I did advise her to stay on a low residue and low roughage diet in general. At this point her Crohn's disease does not seem to be active. Her frequent loose stools may very well be related to all of her small bowel surgeries, as well as her cholecystectomy. These factors may have resulted in some component of a bile-induced diarrhea. As such, I shall give her a trial of cholestyramine powder, although I have told her to use a very small amount in general. Hopefully that might help to some degree and help decrease her bowel movement frequency. She will continue her omeprazole and p.r.n. Zofran for any upper GI complaints of reflux and nausea, respectively. We did discuss her thoughts regarding a potential second and I advised her that I think that would be best to do while the Crohn's disease is in clinical remission. She did not have any problems with her first while being on the Stelara and I would recommend she continue that during her next so as to hopefully Avoid any flareups. I did advise her to review all this with her court usher as well. If things remains stable I will plan to see Gopi in about 6 months for followup visit. I did advise her to tell her [place] physicians to send me copies of their office notes after her visits. I did advise Gopi to contact me in the interim if she has any problems or questions I can be of assistance with. She was comfortable with this plan. Thank you again for allowing me to participate in Gopi's care. I shall continue to keep you advised of her progress. 03/19/2024 Diarrhea, unspecified type (ICD-10 - R19.7) Overall, Gopi appears quite well. She appears to have tolerated the surgery without any difficulties. I did have her sign a release today so I can obtain the actual records to see exactly what was done as far as lysis of adhesions and any surgery on a stricture or removal of small intestine. She continues to tolerate the Stelara without any complications and I did advise her to continue the every four-week regimen.I will give her a lab order to check a Stelara trough level next week prior to her next injection. Given the recent labs from the ER earlier this month that were all normal, I don't think we need to repeat any other labs at this time. I did advise her to stay on a low residue and low roughage diet in general. At this point her Crohn's disease does not seem to be active. Her frequent loose stools may very well be related to all of her small bowel surgeries, as well as her cholecystectomy. These factors may have resulted in some component of a bile-induced diarrhea. As such, I shall give her a trial of cholestyramine powder, although I have told her to use a very small amount in general. Hopefully that might help to some degree and help decrease her bowel movement frequency. She will continue her omeprazole and p.r.n. Zofran for any upper GI complaints of reflux and nausea, respectively. We did discuss her thoughts regarding a potential second and I advised her that I think that would be best to do while the Crohn's disease is in clinical remission. She did not have any problems with her first while being on the Stelara and I would recommend she continue that during her next so as to hopefully Avoid any flareups. I did advise her to review all this with her court usher as well. If things remains stable I will plan to see Gopi in about 6 months for followup visit. I did advise her to tell her [place] physicians to send me copies of their office notes after her visits. I did advise Gopi to contact me in the interim if she has any problems or questions I can be of assistance with. She was comfortable with this plan. Thank you again for allowing me to participate in Gopi's care. I shall continue to keep you advised of her progress. Plan Of Treatment Pending Test Test Name Order Date CHEM 7 PROFILE 11/30/2022 LIVER PROFILE 01/30/2017 LIVER PROFILE 10/25/2016 LIVER PROFILE 10/09/2017 LIVER PROFILE 01/25/2018 LIVER PROFILE 05/16/2016 LIVER PROFILE 12/28/2022 LIVER PROFILE 11/30/2022 LIVER PROFILE 09/16/2019 AMYLASE 09/16/2019 AMYLASE 01/30/2017 AMYLASE 10/25/2016 AMYLASE 10/09/2017 AMYLASE 04/23/2018 LIPASE 09/16/2019 LIPASE 01/30/2017 LIPASE 10/25/2016 LIPASE 10/09/2017 IRON + IBC (FE) 03/16/2017 FERRITIN 03/16/2017 CRP 12/28/2022 CRP 04/21/2022 CRP 11/30/2022 CRP 07/17/2023 CRP 01/30/2017 CRP 10/25/2016 CRP 10/09/2017 CRP 05/16/2016 VITAMIN B12 AND FOLATE 03/16/2017 CBC w DIFF 12/28/2022 CBC w DIFF 04/21/2022 CBC w DIFF 11/30/2022 CBC w DIFF 01/25/2018 CBC w DIFF 09/16/2019 CBC w DIFF 07/17/2023 CBC with MANUAL DIFFERENTIAL 10/09/2017 CBC with MANUAL DIFFERENTIAL 05/16/2016 CBC with MANUAL DIFFERENTIAL 01/30/2017 CBC with MANUAL DIFFERENTIAL 10/25/2016 SED RATE (ESR) 07/17/2023 SED RATE (ESR) 01/30/2017 SED RATE (ESR) 10/25/2016 SED RATE (ESR) 10/09/2017 SED RATE (ESR) 05/16/2016 SED RATE (ESR) 12/28/2022 SED RATE (ESR) 04/21/2022 SED RATE (ESR) 11/30/2022 HEPATITIS B PROFILE 09/24/2018 CLOSTRIDIUM DIFF TOXIN A&B (C DIFF) 10/06 CLOSTRIDIUM DIFF TOXIN A&B (C DIFF) 09/2017 STOOL WBC 10/25/2016 STOOL WBC 10/09/2017 GIARDIA AG, STOOL EIA 12/19/2017 GIARDIA AG, STOOL EIA 10/09/2017 OVA & PARASITES (O&P) 10/09/2017 CULTURE, STOOL 10/09/2017 CULTURE, STOOL 10/25/2016 NUC GASTRIC ANTRUM EMPTYING 03/04/2020 NUC HIDA SCAN 04/23/2018 XR ABD UPRIGHT AND CHEST 01/30/2017 XR ABD UPRIGHT AND CHEST 05/27/2019 US ABD 04/23/2018 PROMETHEUS TPMT ENZYME 05/16/2016 PROMETHEUS TPMT GENETICS 05/16/2016 STOOL WBC 12/28/2022 STOOL WBC 04/21/2022 STOOL WBC 11/30/2022 C DIFFICILE RFLX PCR 11/30/2022 C DIFFICILE RFLX PCR 12/28/2022 C DIFFICILE RFLX PCR 04/21/2022 CALPROTECTIN, STOOL 04/21/2022 Lipase 12/28/2022 Prometheus Anser UST 07/17/2023 Prometheus Anser UST 04/21/2022 Prometheus Anser UST 05/25/2022 Prometheus Anser UST 03/19/2024 Calprotectin, Fecal 11/30/2022 GI PANEL 12/28/2022 GI PANEL 11/30/2022 GI PANEL 04/21/2022 Next Appt Details Provider Name:Channing Shabazz , 02/11/2025 01:40:00 PM, [address] [place] [address], [address], [place], [address], Insurance Providers Payer Name Payer Address Payer Phone Subscriber Number Group Number Insured Name Patient Relationship to Insured Coverage Start Date Coverage End Date [facility] [address] Attn Claims CAROLYN Yang [id number] [id number] LUKE Self - patient is the insured Medications Administered Medication Instructions Date of Administration Dosage Notes B-12 06/13/2019 1000 ug Medical (General) History Medical History History ICD Code Denies VT,DM,CVA,renal disease Crohn's disease of the small intestine--diagnosed at age 14--originally followed by Dr. Seun Clemente and subsequently by Dr. Corbin until the fall--she had been on Remicade in the past but was switched to Humira in approximately 2012-- she has never been on azathioprine-she stopped to Humira at the end of March of 2016 due to persistent problems with skin infections and psoriasis--her 2 most recent colonoscopies in 2013 and in 2014 revealed only minimal changes of ileitis, but no colitis. She had surgery for partial resection of the jejunum in 2011. She was started on azathioprine in January 2018 but this was stopped after she had episode of pancreatitis in February 2018, although in retrospect that was probably from her gallstones. She was also treated with a course of Entocort in the Fall of 2017 with some improvement.Started Stelare in 11/2018. See other information below. Gallstones--reviewed with her on 01/25/18 --she is presently asymptomtic Pancreatitis in 02/2018 and 04/2018-the episode in February was thought to have been from her azathioprine that had been started shortly before that, but then the episode in April was felt to be from her gallbladder and gallstones SBO in 05/2018--resolved with a NG tube Urinary incontinence- mild Hospitalized in August 2018 w ith some abdominal discomfort but no definitive obstruction--an EGD in 08/[address] to the jejunal anastomosis--no stricture nor active Crohn's--gastritis neg. for Hpylori Normal colonoscopy in 8 except for minimal areas of erythema in the colon and minimal erosions in the region of the very distal terminal ileum and ileocecal valve. Biopsies from the terminal ileum and throughout the colon were all normal--there was no evidence of any underlying colitis nor dysplasia Normal SB series in 08/2018 SB video capsule study in 2018 revealed some ulcerations in the small bowel, distal to the anastomosis, consistent with Crohn's disease Neg. abdominal CAT scan and normal laboratories in December of 2018 during an ER visit for abdominal pain In the Partial Hospitalizati on Program at [facility]-sees Dr. Sesay at [facility]--also has a separate therapist and psychiatrist--depression and anxiety Anemia-receiving iron infusi ons with Dr. Rosenbaum--Hgb 13.0 with MCV of 82 in 08/2019 Diagnosed pelvic floor dysfuction and cy stitis- Dr. Molina Asthma Negative upper endoscopy and colonoscopy in June of [address] Bolden at [facility]. She also had a negative MR Enterography in November of 2020 at [facility]. A one She had a baby boy in mid. She had remained on the Stelara throughout the . Stelara trough level of 2.1 in May of 2022 while on the Stelara injections every 8 weeks; her Stelara antibodies were undetectable at that time. Stelara was increased to every 4 weeks i n January of 2023 Small bowel obstruction with a brief hospitalization at [facility] in June of 2023. This did not require surgery, steroids, nor nasogastric tube. She describes a CT scan and met with Dr. Holt while in [place]. She describes being told of a stricture and has an appointment the week of July 22 in [place] to meet with a surgeon, Dr. 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 Feng 04/29/2018 She underwent a laparoscopic surgery for what she describes as lysis of adhesions and possibly surgery on a strictured area of small bowel with Dr. Clancy at [facility]. She does not think any small bowel was resected. 11/2023 Hospitalization History Reason Date(Month/Year)
== END 2024-12-30 09:16 | disposition home or self-care (01) ==
LOC: HO.HMGCLDS 09:15
PROVIDERS: Visit Provider Internal Medicine
DX: K50.812 Crohn's disease of both small and large intestine with intestinal obstruction (principal)
CPT/HCPCS: 36415; 80299; 82542